=== PATIENT | male | born 1970 | race Caucasian/White ===

== ENCOUNTER 2017-02-03 13:24 | Inpatient (IN) | payer SELFPAY ==
[2017-02-03] VITALS (8 sets, daily range): BP systolic 82–112; BP diastolic 51–70
[~2017-02-03] VITALS: Ht 172.7 cm; Wt 77.6 kg
[~2017-02-03 13:24] MED LIST: PNEUMOC CONJ VACC 23-VALENT 0.5 ML VIAL. VAX IM ONE
--- NOTE | 2017-02-03 13:59 | EKG ---
[facility] [address] [place] [address] Test Date: 2017-02-03 Test Time: 13:41:56 Pat Name: ANN MARIE WHIPPLE Department: Room: Gender: M Real Estate Representative: : 1970 Requested By: Dion ERIC Order Number: [id number] Reading MD: Jesus Manuel Dumont Measurements Intervals [place] Rate: 99 P: 49 VA: 142 QRS: 25 QRSD: 80 T: 39 QT: 376 QTc: 488 Interpretive Statements SINUS RHYTHM LOW LIMB LEAD VOLTAGE PROLONGED QT BORDERLINE ECG Electronically Signed On 02-13-2017 9:11:03 VIDEO PRODUCTION COORDINATOR by Jesus Manuel Dumont
[2017-02-03] MEDS ORDERED: IV NORMAL SALINE 1000ML BAG 1,000 ML IV ONE ×2 (14:00→17:15)
[2017-02-03 14:03] LABS: BASO # 0.1 x10^3/uL (0.0-0.2); BASO % 1 % (0-3); EOS % 0 % (0-3); HEMATOCRIT 30.1 % (39.0-53.0); HEMOGLOBIN 9.8 g/dL (13.0-17.5); LYMPH # 2.2 x10^3/uL (1.0-4.8); LYMPH % 11 % (24-48); MEAN CORPUSCULAR HEMOGLOBIN 35 pg (25-35); MEAN CORPUSCULAR HGB CONC 33 g/dL (31-37); MEAN CORPUSCULAR VOLUME 108 fL (79-100); MONO % 7 % (0-9); NEUT % 82 % (31-73); PLATELET COUNT 249 x10^3/uL (140-400); RED BLOOD COUNT 2.78 x10^6/uL (4.30-5.70); RED CELL DISTRIBUTION WIDTH 19.8 % (11.5-14.5); WHITE BLOOD COUNT 20.9 x10^3/uL (4.0-11.0)
[2017-02-03 14:13] LABS: INR 2.7 (0.8-1.1); PROTHROMBIN TIME PATIENT 27.1 SEC (11.7-14.0)
[2017-02-03] MEDS ORDERED: fentaNYL PF VIAL 100 MCG/2 ML VIAL ONE (14:27)
[2017-02-03] MEDS ORDERED: fentaNYL PF VIAL 100 MCG/2 ML VIAL IV ONE (14:30)
[2017-02-03 14:32] LABS: ALBUMIN 1.7 g/dL (3.4-5.0); ALBUMIN/GLOBULIN RATIO 0.4 (1.0-1.7); CREATININE 4.5 mg/dL (0.7-1.3); GFR 14.1; MAGNESIUM 1.1 mg/dL (1.8-2.4); TOTAL BILIRUBIN 20.7 mg/dL (0.2-1.0); TOTAL PROTEIN 5.8 g/dL (6.4-8.2)
--- NOTE | 2017-02-03 14:42 | PHYS DOC ---
Past Medical History Past Medical History: Alcoholism Past Surgical History: Tonsillectomy Additional Information: 1 ppd Alcohol Use: Heavy Additional Information: 1/2 pint vodka daily Drug Use: None Adult General Chief Complaint Chief Complaint: WEAKNESS/GENERALIZED HPI HPI Patient is a 47 year old male presents with complaints of yellowing of the skin , right upper quadrant pain, nausea, weakness. Patient states states his skin started change in color 2 days ago. Patient is a habitual drinker he states now he is down to half a pint per day but used to drink have a 1/2 gallon of liquor a day. Patient also has generalized weakness, bloody stools Review of Systems Review of Systems Constitutional: Denies fever or chills [] Eyes: Denies change in visual acuity, redness, or eye pain [] HENT: Denies nasal congestion or sore throat [] Respiratory: Denies cough or shortness of breath [] Cardiovascular: No chest pain GI: Right upper quadrant pain, nausea. Bloody stools : Denies dysuria or hematuria [] Musculoskeletal: Denies back pain or joint pain [] Integument: Yellow skin Neurologic: Denies headache, focal weakness or sensory changes. Generalized weakness All other systems were reviewed and found to be within normal limits, except as documented in this note. Current Medications Current Medications Current Medications Medications (Trade) Dose Ordered Sig/Steve Start Time Stop Time Status Last Admin Dose Admin Fentanyl Citrate (Fentanyl 2ml Vial) 100 mcg STK-MED ONCE 02/03/17 14:27 02/03/17 14:28 DC Sodium Chloride 1,000 ml @ 1,000 mls/hr 1X ONCE 02/03/17 14:00 02/03/17 14:59 DC 02/03/17 14:00 1,000 MLS/HR Allergies Allergies Allergies Coded Allergies Type Severity Reaction Last Updated Verified No Known Drug Allergies 01/18/17 No Physical Exam Physical Exam Constitutional: Well developed, well nourished, moderate distress, non-toxic appearance. No evidence of alcohol withdrawal HENT: Normocephalic, atraumatic, bilateral external ears normal, oropharynx right, no oral exudates, nose normal. [] Eyes: PERRLA, EOMI, icteric, no discharge. [] Neck: Normal range of motion, no tenderness, supple, no stridor. No meningeal signs, no LAD Cardiovascular:Heart rate regular rhythm, no murmur, equal pulses, normal perfusion Lungs & Thorax: Decreased breathe sounds at the bases. Abdomen: Bowel decrease, mild distention, tenderness right upper quadrant, hepatomegaly, no pulsatile masses. [] Skin: Warm, dry, no erythema, jaundiced. No diaphoresis Back: Normal range of motion[] Extremities: No tenderness, no DVT, ROM intact, no edema. No tremors Neurologic: Alert and oriented X 3, normal motor function, no focal deficits noted. [] Psychologic: Affect normal, judgement normal, mood normal. No hallucinations, delusions Current Patient Data Vital Signs Vital Signs Date Time Temp Pulse Resp B/P (MAP) Pulse Ox O2 Delivery O2 Flow Rate FiO2 02/03/17 14:37 16 98 Room Air 02/03/17 14:26 93 02/03/17 13:32 98.4 74/48 (57) 98.4 Lab Values Laboratory Tests Test 02/03/17 13:45 White Blood Count 20.9 x10^3/uL (4.0-11.0) H Red Blood Count 2.78 x10^6/uL (4.30-5.70) L Hemoglobin 9.8 g/dL (13.0-17.5) L Hematocrit 30.1 % (39.0-53.0) L Mean Corpuscular Volume 108 fL (79-100) H Mean Corpuscular Hemoglobin 35 pg (25-35) Mean Corpuscular Hemoglobin Concent 33 g/dL (31-37) Red Cell Distribution Width 19.8 % (11.5-14.5) H Platelet Count 249 x10^3/uL (140-400) Neutrophils (%) (Auto) 82 % (31-73) H Lymphocytes (%) (Auto) 11 % (24-48) L Monocytes (%) (Auto) 7 % (0-9) Eosinophils (%) (Auto) 0 % (0-3) Basophils (%) (Auto) 1 % (0-3) Neutrophils # (Auto) 17.1 x10^3uL (1.8-7.7) H Lymphocytes # (Auto) 2.2 x10^3/uL (1.0-4.8) Monocytes # (Auto) 1.5 x10^3/uL (0.0-1.1) H Eosinophils # (Auto) 0.0 x10^3/uL (0.0-0.7) Basophils # (Auto) 0.1 x10^3/uL (0.0-0.2) Segmented Neutrophils % 80 % (35-66) H Band Neutrophils % 8 % (0-9) Lymphocytes % 7 % (24-48) L Monocytes % 5 % (0-10) Toxic Granulation Slight Toxic Vacuolation Mod Platelet Estimate Adequate (ADEQUATE) Polychromasia Slight Anisocytosis Slight Macrocytosis Mod Prothrombin Time 27.1 SEC (11.7-14.0) H Prothrombin Time INR 2.7 (0.8-1.1) H Sodium Level 119 mmol/L (136-145) *L Potassium Level 4.0 mmol/L (3.5-5.1) Chloride Level 76 mmol/L (98-107) L Carbon Dioxide Level 22 mmol/L (21-32) Anion Gap 21 (6-14) H Blood Urea Nitrogen 36 mg/dL (8-26) H Creatinine 4.5 mg/dL (0.7-1.3) H Estimated GFR (Cockcroft-Gault) 14.1 BUN/Creatinine Ratio 8 (6-20) Glucose Level 73 mg/dL (70-99) Lactic Acid Level 7.2 mmol/L (0.4-2.0) *H Calcium Level 7.0 mg/dL (8.5-10.1) L Magnesium Level 1.1 mg/dL (1.8-2.4) L Total Bilirubin 20.7 mg/dL (0.2-1.0) H Aspartate Amino Transferase (AST) 289 U/L (15-37) H Alanine Aminotransferase (ALT) 42 U/L (16-63) Alkaline Phosphatase 266 U/L (46-116) H Ammonia 36 mcmol/L (11-34) H Total Protein 5.8 g/dL (6.4-8.2) L Albumin 1.7 g/dL (3.4-5.0) L Albumin/Globulin Ratio 0.4 (1.0-1.7) L Lipase 50 U/L (73-393) L Laboratory Tests 02/03/17 13:45 Laboratory Tests 02/03/17 13:45 EKG EKG 1342 sinus rhythm, 99, no STEMI[] Radiology/Procedures Radiology/Procedures Admitting MD aware of pending US[] Course & Med Decision Making Course & Med Decision Making Pertinent Labs and Imaging studies reviewed. (See chart for details) Admitting Nancy has requested med telemetry for this patient, I suggested ICU but she wants med telemetry at this time 1541 pt still hypotensive but mentating well. Will change admission to ICU bed and start levophed and give antibiotics. The elevated lactic acid may be only due to the liver failure but with the elevated WBC and hypotension we will treat accordingly Critical care time was 30 minutes exclusive of procedures or teaching. discussion with pt and family, nursing, admitting team. Pressors started as well as antibiotics. Patient has multiple issues complicating his condition. One on one time needed to coordinate care, initiate and monitor interventions and monitor for possible deterioration 1632 pt in nad, still hypotensive, will increase levophed to 10/min [] Dragon Disclaimer Dragon Disclaimer This electronic medical record was generated, in whole or in part, using a voice recognition dictation system. Departure Departure Impression: Primary Impression: Liver failure Additional Impressions: Electrolyte abnormality Dehydration Alcohol abuse Leukocytosis Anemia Increased ammonia level Hypotension Disposition: 09 ADMITTED INPATIENT Admitting Physician: Other Condition: GUARDED Referrals: NO PCP (PCP) Scripts No Active Prescriptions or Reported Meds Problem Qualifiers Dion ERIC MD Feb 03, 2017 14:42
[2017-02-03 14:48] LABS: PLT ESTIMATE ADEQUATE (ADEQUATE)
[2017-02-03 14:49] LABS: ANISOCYTOSIS SLIGHT; POLYCHROMASIA SLIGHT; TOXIC GRANULATION SLIGHT; TOXIC VACUOLATION MOD
[2017-02-03] MEDS ORDERED: IV NORMAL SALINE 500ML BAG 500 ML IV ONE ×2 (15:00→22:30)
[2017-02-03] MEDS ORDERED: PIPERACILLIN/TAZO IV Push 3.375 GM VIAL. IVP ONE (15:45)
[2017-02-03] MEDS ORDERED: PIPERACILLIN/TAZOBACTAM 3.375 GM in IV DEXTROSE 5% 50 ML IV ONE (15:45)
[2017-02-03] MEDS ORDERED: NOREPINEPHRIN PREMIX 250 ML IV ONE (15:45)
--- NOTE | 2017-02-03 16:03 | RAD ---
Portable AP upright view CXR: Clinical indications: Decreased breath sounds. Comparison: None available. Findings: Decreased inspiration is seen. No acute lung infiltrate or pleural effusion or pulmonary edema or lung mass or pneumothorax is seen. The heart size, pulmonary vasculature, mediastinum and both nohemi are unremarkable. Impression: Decreased inspiration is seen. No acute radiographic abnormality is seen.
--- NOTE | 2017-02-03 16:13 | RAD ---
Right upper quadrant abdominal ultrasound, 02/03/2017: History: Right upper quadrant pain, liver failure, ascites The gallbladder is somewhat poorly visualized. There is edematous thickening of its arrington. It contains echogenic material without posterior acoustic shadowing. The appearance suggests biliary sludge. Small calculi cannot be entirely excluded. The liver demonstrates generalized increased echogenicity. This is most commonly due to fatty change. No hepatic mass or bile duct dilatation is seen. The pancreas and central retroperitoneum were obscured obscured by overlying bowel. Limited views of the right kidney show no abnormality. A small volume of ascites is present. IMPRESSION: 1. Increased hepatic echogenicity compatible with hepatic steatosis. 2. The gallbladder is filled with echogenic material, probably sludge. 3. Diffuse gallbladder wall thickening which can be due to a variety of causes including liver disease, hypoproteinemia or cholecystitis. 4. Small volume of ascites.
[2017-02-03] MEDS ORDERED: INFLUENZA VAX SCREEN BY RX. MC ONE (19:45)
[2017-02-03] MEDS ORDERED: PNEUMOCOCCAL VAX SCREEN BY RX. MC ONE (19:45)
[2017-02-03] MEDS ORDERED: MULTIVIT INFUSN,ADULT 4,VIT K 10 ML, THIAMINE 100 MG, FOLIC ACID 1 MG in IV NORMAL SALI... IV ONE (20:00)
[2017-02-03] MEDS ORDERED: MAGNESIUM SULFATE 2GM 50 ML IV ONE (20:00)
[2017-02-03] MEDS: MORPHINE SULFATE 2 MG/ML DISP.SYRIN. IV PRN ×2 (20:44→20:51)
[2017-02-03] MEDS ORDERED: FLU VACC QS2017-18 (36MOS+)/PF 0.5 ML SYRINGE. VAX IM ONE (21:00)
[2017-02-03 21:10] LABS: CALCIUM 6.4 mg/dL (8.5-10.1); CREATININE 4.5 mg/dL (0.7-1.3); GFR 14.1; POTASSIUM 4.1 mmol/L (3.5-5.1)
--- NOTE | 2017-02-03 21:13 | HP ---
ADMIT DATE: 02/03/2017 CHIEF COMPLAINT: Jaundice. HISTORY OF PRESENT ILLNESS: The patient is a 47-year-old gentleman with a significant alcoholism, who presented to the Emergency Room with a 3-4 day history of increasing jaundice. His girlfriend finally brought him into the Emergency Room. On elucidating history from him, it becomes clear that since his most recent discharge for dehydration on 01/18/2017, he has been feeling weak, nauseated, although no vomiting, occasional retching. He had significant anorexia and cut down on his typical half a gallon of vodka a day to about half of that. Smoking also has significantly decreased from his usual greater than 1 pack to about half a pack now. He had developed diarrhea about 4 days ago: Multiple times up to 8-9 times a day without any pain and no blood noted for the past 4 days. He denies any fevers, does have generalized abdominal as well as back pain, which is new to him. He had not noticed decreased urine output but endorsed generalized weakness and fatigue. In the Emergency Room, he was found with multiple laboratory abnormalities including significant leukocytosis with left shift, hyponatremia at 119 and creatinine at 4.5, which had been 0.9 at his previous admission as well as lactic acid of 7.2 and bilirubin of 20.7 and he was admitted to the ICU room for further management. PAST MEDICAL HISTORY: None. 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 Massive alcohol use of half a gallon of vodka daily as well as tobacco use above 1 pack a day. No other drugs. ALLERGIES: No known drug allergies. HOME MEDICATIONS: None. REVIEW OF SYSTEMS: Positive as per HPI. Denies any headaches or vision problems. Denies any chest pain or shortness of breath. Denies any muscle aches in his extremities. Girlfriend noted mild confusion. Positive for GI symptoms as per HPI. Back pain, which is new. PHYSICAL EXAMINATION: VITAL SIGNS: From today show a blood pressure of 74/48 and currently 109/54, on Levophed; heart rate in the 80s and 90s; respiratory rate 17-20 and he is afebrile. GENERAL: This is a 47-year-old slim gentleman. Awake and alert, in no acute distress. HEENT: Sclerae severely icteric. NECK: Supple. LUNGS: Clear. HEART: Tachycardic with gallop. ABDOMEN: Tenderness to palpation in the right side where liver is palpable past the umbilicus and also splenomegaly about 5 cm below costal margin. EXTREMITIES: Show trace edema. NEUROLOGICAL: He appears grossly intact, although with slight perseveration in thought. He is able to move all extremities. LABORATORY DATA: CBC with a WBC of 20.9. Differential with 80% segmented and 8% band neutrophils. Hemoglobin at 9.8, MCV at 108 and platelets at 249. Chemistries with a BUN and creatinine of 36 and 4.5, sodium 119, potassium 4.0 and magnesium 1.1. Total bilirubin 20.7, AST 289, ALT of 42 and alkaline phosphatase at 266. Initial troponin is negative. Albumin at 1.8. Ammonia 36. Lactate at 7.2 and repeat 4 hours later 4.9. Lipase is negative. Tox screen not obtained. Alcohol level was negative. IMAGING DATA: Ultrasound of the right upper quadrant showing increased hepatic echogenicity compatible with hepatic steatosis. Gallbladder is filled probably sludge, diffuse gallbladder wall thickening, which can be due to a variety of causes, small volume ascites. ASSESSMENT AND PLAN: The patient is a 47-year-old gentleman with severe hepatorenal failure for unclear etiology. Part of this may be dehydration due to poor p.o. intake, combined with diarrhea. We will have to evaluate the latter with stool studies. He did have hospital contacted 2 weeks ago per RN, bowel movement here appeared melanotic, smelling like a gastrointestinal bleed. We will obtain occult blood stools to confirm. Gastrointestinal consult will be obtained for this as well as liver failure. Renal failure appears fairly acute. Two weeks ago, his creatinine had been normal. We will consult renal for potential dialysis. Hyponatremia that is critical at 119. He has received multiple liters of normal saline. We will repeat studies to follow up. May need further repletion. Etiology of hypotension is somewhat unclear, however, with leukocytosis and left shift, infection is high on the list. No focus has been identified as of yet. Consider gastrointestinal given a diarrheal symptoms and possible melena. Blood cultures have been obtained in the Emergency Room. We will start empirically on Zosyn and Flagyl. Lastly, code status was discussed with him and his girlfriend. He wishes "everything" to be done including cardiopulmonary resuscitation and intubation if necessary. He qualifies as that he would not want to be kept alive if there was no possibility of recovery. He designates verbally his girlfriend as the decision maker should he be incapacitated. He wishes to discuss advanced directive with Edger Saw Operator. RENE MARQUEZ MD DR: MARSHA/nts JOB#: [id number] / [id number]
[2017-02-03 21:18] LABS: ALBUMIN 1.5 g/dL (3.4-5.0); ALBUMIN/GLOBULIN RATIO 0.4 (1.0-1.7); TOTAL BILIRUBIN 18.2 mg/dL (0.2-1.0); TOTAL PROTEIN 4.9 g/dL (6.4-8.2)
[2017-02-03] MEDS: IV NORMAL SALINE 1000ML BAG 1,000 ML IV SCH (22:07)
[2017-02-04] VITALS (25 sets, daily range): BP systolic 72–99; BP diastolic 45–70
[2017-02-04] MEDS ORDERED: PIPERACILLIN/TAZOBACTAM 2.25 GM in IV DEXTROSE 5% 50 ML IV SCH ×2
[2017-02-04] MEDS: NOREPINEPHRIN PREMIX 250 ML IV PRN ×5 (00:18→22:24)
[2017-02-04] MEDS: PIPERACILLIN/TAZO IV Push 2.25 GM VIAL. IVP SCH ×4 (00:45→22:12)
[2017-02-04] MEDS ORDERED: IV NORMAL SALINE 500ML BAG 500 ML IV ONE (03:00)
[2017-02-04 06:08] LABS: BASO # 0.1 x10^3/uL (0.0-0.2); BASO % 1 % (0-3); EOS % 0 % (0-3); HEMATOCRIT 25.1 % (39.0-53.0); HEMOGLOBIN 8.1 g/dL (13.0-17.5); LYMPH # 3.3 x10^3/uL (1.0-4.8); LYMPH % 14 % (24-48); MEAN CORPUSCULAR HEMOGLOBIN 36 pg (25-35); MEAN CORPUSCULAR HGB CONC 33 g/dL (31-37); MEAN CORPUSCULAR VOLUME 110 fL (79-100); MONO % 7 % (0-9); NEUT % 78 % (31-73); PLATELET COUNT 259 x10^3/uL (140-400); RED BLOOD COUNT 2.27 x10^6/uL (4.30-5.70); RED CELL DISTRIBUTION WIDTH 19.4 % (11.5-14.5); WHITE BLOOD COUNT 23.1 x10^3/uL (4.0-11.0)
[2017-02-04 06:45] LABS: ALBUMIN 1.4 g/dL (3.4-5.0); ALBUMIN/GLOBULIN RATIO 0.4 (1.0-1.7); CREATININE 4.6 mg/dL (0.7-1.3); GFR 13.7; TOTAL BILIRUBIN 18.8 mg/dL (0.2-1.0)
[2017-02-04 07:00] LABS: CALCIUM 6.1 mg/dL (8.5-10.1)
[2017-02-04] MEDS: MULTIVIT INFUSN,ADULT 4,VIT K 10 ML, THIAMINE 100 MG, FOLIC ACID 1 MG in IV NORMAL SALI... IV SCH (09:14)
[2017-02-04] MEDS: IV NORMAL SALINE 1000ML BAG 1,000 ML IV SCH ×3 (09:14→23:37)
[2017-02-04] MEDS ORDERED: VASOPRESSIN 40 UNIT in IV DEXTROSE 5% 100 ML IV PRN (09:30)
--- NOTE | 2017-02-04 09:40 | PDOC ---
PROGRESS NOTES Chief Complaint Chief Complaint Jaundice ASSESSMENT AND PLAN: 1. Hypotensive shock: barely responsive to IVF boluses and levophed. cont IVF , vasopressors as needed. ? septic shock with leukocytosis, lactic acidosis. awaiting cult., on empiric Abx 2. Renal failure: essentially unchanged labs with high creat, electrolyte imbalances. D/w Dr Hinton: CVVT planned 3. Hepatic failure: unchanged labs, elevated ammonia. acute on chronic picture. 4. ?GIB: no further melena noted, but BUN rising. GI consult pending. 5. EtOH abuse: neg EtOH level at admit, no signs of W/D. [facility] protocol Vitals Vitals Vital Signs Date Time Temp Pulse Resp B/P (MAP) Pulse Ox O2 Delivery O2 Flow Rate FiO2 02/04/17 09:18 96 21 84/48 (60) 96 Room Air 02/04/17 04:00 98.4 98.4 Physical Exam General: Alert, Oriented X3, Cooperative, No acute distress Heart: Regular rate Lungs: Clear Abdomen: Normal bowel sounds Extremities: No clubbing, Other (tace edema) Skin: Other (massive jaundice) Labs LABS Laboratory Tests Test 02/03/17 13:45 02/03/17 17:30 02/03/17 20:35 02/04/17 05:38 White Blood Count 20.9 x10^3/uL (4.0-11.0) 23.1 x10^3/uL (4.0-11.0) Red Blood Count 2.78 x10^6/uL (4.30-5.70) 2.27 x10^6/uL (4.30-5.70) Hemoglobin 9.8 g/dL (13.0-17.5) 8.1 g/dL (13.0-17.5) Hematocrit 30.1 % (39.0-53.0) 25.1 % (39.0-53.0) Mean Corpuscular Volume 108 fL (79-100) 110 fL (79-100) Mean Corpuscular Hemoglobin 35 pg (25-35) 36 pg (25-35) Mean Corpuscular Hemoglobin Concent 33 g/dL (31-37) 33 g/dL (31-37) Red Cell Distribution Width 19.8 % (11.5-14.5) 19.4 % (11.5-14.5) Platelet Count 249 x10^3/uL (140-400) 259 x10^3/uL (140-400) Neutrophils (%) (Auto) 82 % (31-73) 78 % (31-73) Lymphocytes (%) (Auto) 11 % (24-48) 14 % (24-48) Monocytes (%) (Auto) 7 % (0-9) 7 % (0-9) Eosinophils (%) (Auto) 0 % (0-3) 0 % (0-3) Basophils (%) (Auto) 1 % (0-3) 1 % (0-3) Neutrophils # (Auto) 17.1 x10^3uL (1.8-7.7) 18.0 x10^3uL (1.8-7.7) Lymphocytes # (Auto) 2.2 x10^3/uL (1.0-4.8) 3.3 x10^3/uL (1.0-4.8) Monocytes # (Auto) 1.5 x10^3/uL (0.0-1.1) 1.6 x10^3/uL (0.0-1.1) Eosinophils # (Auto) 0.0 x10^3/uL (0.0-0.7) 0.0 x10^3/uL (0.0-0.7) Basophils # (Auto) 0.1 x10^3/uL (0.0-0.2) 0.1 x10^3/uL (0.0-0.2) Segmented Neutrophils % 80 % (35-66) Band Neutrophils % 8 % (0-9) Lymphocytes % 7 % (24-48) Monocytes % 5 % (0-10) Toxic Granulation Slight Toxic Vacuolation Mod Platelet Estimate Adequate (ADEQUATE) Polychromasia Slight Anisocytosis Slight Macrocytosis Mod Prothrombin Time 27.1 SEC (11.7-14.0) Prothromb Time International Ratio 2.7 (0.8-1.1) Sodium Level 119 mmol/L (136-145) 125 mmol/L (136-145) 124 mmol/L (136-145) Potassium Level 4.0 mmol/L (3.5-5.1) 4.1 mmol/L (3.5-5.1) 4.0 mmol/L (3.5-5.1) Chloride Level 76 mmol/L (98-107) 82 mmol/L (98-107) 87 mmol/L (98-107) Carbon Dioxide Level 22 mmol/L (21-32) 20 mmol/L (21-32) 17 mmol/L (21-32) Anion Gap 21 (6-14) 23 (6-14) 20 (6-14) Blood Urea Nitrogen 36 mg/dL (8-26) 37 mg/dL (8-26) 44 mg/dL (8-26) Creatinine 4.5 mg/dL (0.7-1.3) 4.5 mg/dL (0.7-1.3) 4.6 mg/dL (0.7-1.3) Estimated GFR (Cockcroft-Gault) 14.1 14.1 13.7 BUN/Creatinine Ratio 8 (6-20) 8 (6-20) 10 (6-20) Glucose Level 73 mg/dL (70-99) 74 mg/dL (70-99) 84 mg/dL (70-99) Lactic Acid Level 7.2 mmol/L (0.4-2.0) 4.9 mmol/L (0.4-2.0) Calcium Level 7.0 mg/dL (8.5-10.1) 6.4 mg/dL (8.5-10.1) 6.1 mg/dL (8.5-10.1) Magnesium Level 1.1 mg/dL (1.8-2.4) 1.0 mg/dL (1.8-2.4) 1.7 mg/dL (1.8-2.4) Total Bilirubin 20.7 mg/dL (0.2-1.0) 18.2 mg/dL (0.2-1.0) 18.8 mg/dL (0.2-1.0) Aspartate Amino Transf (AST/SGOT) 289 U/L (15-37) 263 U/L (15-37) 256 U/L (15-37) Alanine Aminotransferase (ALT/SGPT) 42 U/L (16-63) 40 U/L (16-63) 39 U/L (16-63) Alkaline Phosphatase 266 U/L (46-116) 228 U/L (46-116) 213 U/L (46-116) Ammonia 36 mcmol/L (11-34) Total Protein 5.8 g/dL (6.4-8.2) 4.9 g/dL (6.4-8.2) 5.0 g/dL (6.4-8.2) Albumin 1.7 g/dL (3.4-5.0) 1.5 g/dL (3.4-5.0) 1.4 g/dL (3.4-5.0) Albumin/Globulin Ratio 0.4 (1.0-1.7) 0.4 (1.0-1.7) 0.4 (1.0-1.7) Lipase 50 U/L (73-393) Comment Review of Relevant I have reviewed the following items neetu (where applicable) has been applied. Labs Laboratory Tests Test 02/03/17 13:45 02/03/17 17:30 02/03/17 20:35 02/04/17 05:38 White Blood Count 20.9 x10^3/uL (4.0-11.0) 23.1 x10^3/uL (4.0-11.0) Red Blood Count 2.78 x10^6/uL (4.30-5.70) 2.27 x10^6/uL (4.30-5.70) Hemoglobin 9.8 g/dL (13.0-17.5) 8.1 g/dL (13.0-17.5) Hematocrit 30.1 % (39.0-53.0) 25.1 % (39.0-53.0) Mean Corpuscular Volume 108 fL (79-100) 110 fL (79-100) Mean Corpuscular Hemoglobin 35 pg (25-35) 36 pg (25-35) Mean Corpuscular Hemoglobin Concent 33 g/dL (31-37) 33 g/dL (31-37) Red Cell Distribution Width 19.8 % (11.5-14.5) 19.4 % (11.5-14.5) Platelet Count 249 x10^3/uL (140-400) 259 x10^3/uL (140-400) Neutrophils (%) (Auto) 82 % (31-73) 78 % (31-73) Lymphocytes (%) (Auto) 11 % (24-48) 14 % (24-48) Monocytes (%) (Auto) 7 % (0-9) 7 % (0-9) Eosinophils (%) (Auto) 0 % (0-3) 0 % (0-3) Basophils (%) (Auto) 1 % (0-3) 1 % (0-3) Neutrophils # (Auto) 17.1 x10^3uL (1.8-7.7) 18.0 x10^3uL (1.8-7.7) Lymphocytes # (Auto) 2.2 x10^3/uL (1.0-4.8) 3.3 x10^3/uL (1.0-4.8) Monocytes # (Auto) 1.5 x10^3/uL (0.0-1.1) 1.6 x10^3/uL (0.0-1.1) Eosinophils # (Auto) 0.0 x10^3/uL (0.0-0.7) 0.0 x10^3/uL (0.0-0.7) Basophils # (Auto) 0.1 x10^3/uL (0.0-0.2) 0.1 x10^3/uL (0.0-0.2) Segmented Neutrophils % 80 % (35-66) Band Neutrophils % 8 % (0-9) Lymphocytes % 7 % (24-48) Monocytes % 5 % (0-10) Toxic Granulation Slight Toxic Vacuolation Mod Platelet Estimate Adequate (ADEQUATE) Polychromasia Slight Anisocytosis Slight Macrocytosis Mod Prothrombin Time 27.1 SEC (11.7-14.0) Prothromb Time International Ratio 2.7 (0.8-1.1) Sodium Level 119 mmol/L (136-145) 125 mmol/L (136-145) 124 mmol/L (136-145) Potassium Level 4.0 mmol/L (3.5-5.1) 4.1 mmol/L (3.5-5.1) 4.0 mmol/L (3.5-5.1) Chloride Level 76 mmol/L (98-107) 82 mmol/L (98-107) 87 mmol/L (98-107) Carbon Dioxide Level 22 mmol/L (21-32) 20 mmol/L (21-32) 17 mmol/L (21-32) Anion Gap 21 (6-14) 23 (6-14) 20 (6-14) Blood Urea Nitrogen 36 mg/dL (8-26) 37 mg/dL (8-26) 44 mg/dL (8-26) Creatinine 4.5 mg/dL (0.7-1.3) 4.5 mg/dL (0.7-1.3) 4.6 mg/dL (0.7-1.3) Estimated GFR (Cockcroft-Gault) 14.1 14.1 13.7 BUN/Creatinine Ratio 8 (6-20) 8 (6-20) 10 (6-20) Glucose Level 73 mg/dL (70-99) 74 mg/dL (70-99) 84 mg/dL (70-99) Lactic Acid Level 7.2 mmol/L (0.4-2.0) 4.9 mmol/L (0.4-2.0) Calcium Level 7.0 mg/dL (8.5-10.1) 6.4 mg/dL (8.5-10.1) 6.1 mg/dL (8.5-10.1) Magnesium Level 1.1 mg/dL (1.8-2.4) 1.0 mg/dL (1.8-2.4) 1.7 mg/dL (1.8-2.4) Total Bilirubin 20.7 mg/dL (0.2-1.0) 18.2 mg/dL (0.2-1.0) 18.8 mg/dL (0.2-1.0) Aspartate Amino Transf (AST/SGOT) 289 U/L (15-37) 263 U/L (15-37) 256 U/L (15-37) Alanine Aminotransferase (ALT/SGPT) 42 U/L (16-63) 40 U/L (16-63) 39 U/L (16-63) Alkaline Phosphatase 266 U/L (46-116) 228 U/L (46-116) 213 U/L (46-116) Ammonia 36 mcmol/L (11-34) Total Protein 5.8 g/dL (6.4-8.2) 4.9 g/dL (6.4-8.2) 5.0 g/dL (6.4-8.2) Albumin 1.7 g/dL (3.4-5.0) 1.5 g/dL (3.4-5.0) 1.4 g/dL (3.4-5.0) Albumin/Globulin Ratio 0.4 (1.0-1.7) 0.4 (1.0-1.7) 0.4 (1.0-1.7) Lipase 50 U/L (73-393) Laboratory Tests Test 02/03/17 13:45 02/03/17 17:30 02/03/17 20:35 02/04/17 05:38 White Blood Count 20.9 x10^3/uL (4.0-11.0) 23.1 x10^3/uL (4.0-11.0) Red Blood Count 2.78 x10^6/uL (4.30-5.70) 2.27 x10^6/uL (4.30-5.70) Hemoglobin 9.8 g/dL (13.0-17.5) 8.1 g/dL (13.0-17.5) Hematocrit 30.1 % (39.0-53.0) 25.1 % (39.0-53.0) Mean Corpuscular Volume 108 fL (79-100) 110 fL (79-100) Mean Corpuscular Hemoglobin 35 pg (25-35) 36 pg (25-35) Mean Corpuscular Hemoglobin Concent 33 g/dL (31-37) 33 g/dL (31-37) Red Cell Distribution Width 19.8 % (11.5-14.5) 19.4 % (11.5-14.5) Platelet Count 249 x10^3/uL (140-400) 259 x10^3/uL (140-400) Neutrophils (%) (Auto) 82 % (31-73) 78 % (31-73) Lymphocytes (%) (Auto) 11 % (24-48) 14 % (24-48) Monocytes (%) (Auto) 7 % (0-9) 7 % (0-9) Eosinophils (%) (Auto) 0 % (0-3) 0 % (0-3) Basophils (%) (Auto) 1 % (0-3) 1 % (0-3) Neutrophils # (Auto) 17.1 x10^3uL (1.8-7.7) 18.0 x10^3uL (1.8-7.7) Lymphocytes # (Auto) 2.2 x10^3/uL (1.0-4.8) 3.3 x10^3/uL (1.0-4.8) Monocytes # (Auto) 1.5 x10^3/uL (0.0-1.1) 1.6 x10^3/uL (0.0-1.1) Eosinophils # (Auto) 0.0 x10^3/uL (0.0-0.7) 0.0 x10^3/uL (0.0-0.7) Basophils # (Auto) 0.1 x10^3/uL (0.0-0.2) 0.1 x10^3/uL (0.0-0.2) Segmented Neutrophils % 80 % (35-66) Band Neutrophils % 8 % (0-9) Lymphocytes % 7 % (24-48) Monocytes % 5 % (0-10) Toxic Granulation Slight Toxic Vacuolation Mod Platelet Estimate Adequate (ADEQUATE) Polychromasia Slight Anisocytosis Slight Macrocytosis Mod Prothrombin Time 27.1 SEC (11.7-14.0) Prothromb Time International Ratio 2.7 (0.8-1.1) Sodium Level 119 mmol/L (136-145) 125 mmol/L (136-145) 124 mmol/L (136-145) Potassium Level 4.0 mmol/L (3.5-5.1) 4.1 mmol/L (3.5-5.1) 4.0 mmol/L (3.5-5.1) Chloride Level 76 mmol/L (98-107) 82 mmol/L (98-107) 87 mmol/L (98-107) Carbon Dioxide Level 22 mmol/L (21-32) 20 mmol/L (21-32) 17 mmol/L (21-32) Anion Gap 21 (6-14) 23 (6-14) 20 (6-14) Blood Urea Nitrogen 36 mg/dL (8-26) 37 mg/dL (8-26) 44 mg/dL (8-26) Creatinine 4.5 mg/dL (0.7-1.3) 4.5 mg/dL (0.7-1.3) 4.6 mg/dL (0.7-1.3) Estimated GFR (Cockcroft-Gault) 14.1 14.1 13.7 BUN/Creatinine Ratio 8 (6-20) 8 (6-20) 10 (6-20) Glucose Level 73 mg/dL (70-99) 74 mg/dL (70-99) 84 mg/dL (70-99) Lactic Acid Level 7.2 mmol/L (0.4-2.0) 4.9 mmol/L (0.4-2.0) Calcium Level 7.0 mg/dL (8.5-10.1) 6.4 mg/dL (8.5-10.1) 6.1 mg/dL (8.5-10.1) Magnesium Level 1.1 mg/dL (1.8-2.4) 1.0 mg/dL (1.8-2.4) 1.7 mg/dL (1.8-2.4) Total Bilirubin 20.7 mg/dL (0.2-1.0) 18.2 mg/dL (0.2-1.0) 18.8 mg/dL (0.2-1.0) Aspartate Amino Transf (AST/SGOT) 289 U/L (15-37) 263 U/L (15-37) 256 U/L (15-37) Alanine Aminotransferase (ALT/SGPT) 42 U/L (16-63) 40 U/L (16-63) 39 U/L (16-63) Alkaline Phosphatase 266 U/L (46-116) 228 U/L (46-116) 213 U/L (46-116) Ammonia 36 mcmol/L (11-34) Total Protein 5.8 g/dL (6.4-8.2) 4.9 g/dL (6.4-8.2) 5.0 g/dL (6.4-8.2) Albumin 1.7 g/dL (3.4-5.0) 1.5 g/dL (3.4-5.0) 1.4 g/dL (3.4-5.0) Albumin/Globulin Ratio 0.4 (1.0-1.7) 0.4 (1.0-1.7) 0.4 (1.0-1.7) Lipase 50 U/L (73-393) Medications Current Medications Sodium Chloride 1,000 ml @ 1,000 mls/hr 1X ONCE IV Last administered on 02/03 14:00; Start 02/03/17 at 14:00; Stop 02/03/17 at 14:59; Status DC Fentanyl Citrate (Fentanyl 2ml Vial) 50 mcg 1X ONCE IV Last administered on 14:37; Start 02/03/17 at 14:30; Stop 02/03/17 at 14:31; Status DC Fentanyl Citrate (Fentanyl 2ml Vial) 100 mcg STK-MED ONCE .ROUTE ; Start at 14:27; Stop 02/03/17 at 14:28; Status DC Sodium Chloride 500 ml @ 500 mls/hr 1X ONCE IV Last administered on 14:59; Start 02/03/17 at 15:00; Stop 02/03/17 at 15:59; Status DC Norepinephrine Bitartrate 250 ml @ 0 mls/hr 1X ONCE IV Last administered on 16:02; Start 02/03/17 at 15:45; Stop 02/03/17 at 15:46; Status DC Piperacillin Sod/ Tazobactam Sod 3.375 gm/Dextrose 50 ml @ 100 mls/hr 1X ONCE IV ; Start 02/03/17 at 15:45; Stop 02/03/17 at 15:45; Status DC Piperacillin Sod/ Tazobactam Sod (Zosyn) 3.375 gm 1X ONCE IVP Last administered on 02/03/17 15:53; Start 02/03/17 at 15:45; Stop 02/03/17 at 15 :46; Status DC Sodium Chloride 1,000 ml @ 1,000 mls/hr 1X ONCE IV Last administered on 02/03 17:15; Start 02/03/17 at 17:15; Stop 02/03/17 at 18:14; Status DC Piperacillin Sod/ Tazobactam Sod 2.25 gm/Dextrose 50 ml @ 100 mls/hr Q6HRS IV ; Start 02/04/17 at 00:00; Status UNV Metronidazole 100 ml @ 100 mls/hr Q12HR IV Last administered on 02/04/17 08: 41; Start 02/03/17 at 21:00 Magnesium Sulfate/ Dextrose 50 ml @ 25 mls/hr 1X ONCE IV Last administered on 02/03/17 22:06; Start 02/03/17 at 20:00; Stop 02/03/17 at 21:59; Status DC Morphine Sulfate 2 mg PRN Q4HRS PRN IV PAIN Last administered on 02/03/17 20: 51; Start 02/03/17 at 19:30 Multivitamins 10 ml/Thiamine HCl 100 mg/Folic Acid 1 mg/Sodium Chloride 1,011.2 ml @ 1,000.088 mls/hr 1X ONCE IV Last administered on 02/03/17 20:15; Start 02/03/17 at 20:00; Stop 02/03/17 at 21:00; Status DC Multivitamins 10 ml/Thiamine HCl 100 mg/Folic Acid 1 mg/Sodium Chloride 1,011.2 ml @ 100 mls/ hr DAILY IV Last administered on 02/04/17 09:14; Start at 09:00; Stop 02/08/17 at 19:07 Lorazepam (Ativan) 1 mg PRN Q1HR PRN IV For CIWA 8-14; Start 02/03/17 at 19:45 Info (Do NOT chart on this placeholder) 1 each 1X ONCE MC ; Start 02/03/17 at 19:45; Stop 02/03/17 at 19:46; Status UNV Pneumococcal Polyvalent Vaccine (Do NOT chart on this placeholder) 1 each 1X ONCE MC ; Start 02/03/17 at 19:45; Stop 02/03/17 at 19:46; Status UNV Piperacillin Sod/ Tazobactam Sod (Zosyn) 2.25 gm Q6HRS IVP Last administered on 02/04/17 05:56; Start 02/04/17 at 00:00 Lorazepam (Ativan) 2 mg PRN Q1HR PRN IV For CIWA 8-14; Start 02/03/17 at 19:45 Influenza Virus Vaccine Quadrival (Fluarix Quad [id number] Syringe) 0.5 ml ONCE ONCE VAX IM ; Start 02/03/17 at 21:00; Stop 02/03/17 at 21:01; Status DC Pneumococcal Polyvalent Vaccine (Pneumovax 23) 0.5 ml ONCE ONCE VAX IM ; Start 02/03/17 at 12:00; Stop 02/03/17 at 19:44; Status DC Sodium Chloride 1,000 ml @ 100 mls/hr Q10H IV Last administered on 02/04/17 09:14; Start 02/03/17 at 21:45 Sodium Chloride 500 ml @ 500 mls/hr 1X ONCE IV Last administered on 22:07; Start 02/03/17 at 22:30; Stop 02/03/17 at 23:29; Status DC Norepinephrine Bitartrate 250 ml @ 0 mls/hr CONT PRN IV SEE I/O RECORD Last administered on 02/04/17 07:59; Start 02/03/17 at 23:30 Sodium Chloride 500 ml @ 500 mls/hr 1X ONCE IV Last administered on 02:46; Start 02/04/17 at 03:00; Stop 02/04/17 at 03:59; Status DC Active Scripts Active No Active Prescriptions or Reported Medications Vitals/I & O Vital Sign - Last 24 Hours 02/03/17 02/03/17 02/03/17 02/03/17 13:32 13:35 13:41 13:57 Temp 98.4 98.4 Pulse 101 102 97 97 Resp 28 18 19 20 B/P (MAP) 74/48 (57) Pulse Ox 94 94 98 98 O2 Delivery Room Air 02/03/17 02/03/17 02/03/17 02/03/17 14:02 14:11 14:26 14:37 Pulse 93 94 93 Resp 17 18 16 16 Pulse Ox 97 97 97 98 O2 Delivery Room Air 02/03/17 02/03/17 02/03/17 02/03/17 14:41 14:56 15:11 15:19 Pulse 94 93 96 94 Resp 18 20 19 19 Pulse Ox 96 97 98 98 02/03/17 02/03/17 02/03/17 02/03/17 15:56 16:11 16:17 16:26 Pulse 94 91 91 91 Resp 19 20 19 17 Pulse Ox 98 99 99 97 02/03/17 02/03/17 02/03/17 02/03/17 16:41 17:00 17:15 17:30 Temp 98.5 98.5 Pulse 86 92 92 Resp 20 16 16 B/P (MAP) 99/53 (68) 92/ 112/70 (84) Pulse Ox 96 97 97 98 O2 Delivery Room Air Room Air 02/03/17 02/03/17 02/03/17 02/03/17 17:30 19:19 20:00 20:00 Temp 98.6 98.6 Pulse 96 96 Resp 16 18 B/P (MAP) 83/58 (66) 82/51 (61) Pulse Ox 96 96 O2 Delivery Room Air Room Air Room Air Room Air 02/03/17 02/03/17 02/03/17 02/03/17 20:51 21:00 21:30 22:00 Pulse 96 98 Resp 25 18 18 22 B/P (MAP) 90/61 (71) 91/54 (66) Pulse Ox 95 96 95 95 O2 Delivery Room Air Room Air Room Air Room Air 02/03/17 02/04/17 02/04/17 02/04/17 23:00 00:00 00:00 01:00 Temp 98.4 98.4 Pulse 96 94 98 Resp 19 16 20 B/P (MAP) 83/51 (62) 87/70 (76) 83/51 (62) Pulse Ox 95 95 95 O2 Delivery Room Air Room Air Room Air Room Air 02/04/17 02/04/17 02/04/17 02/04/17 02:00 02:45 03:00 04:00 Temp 98.4 98.4 Pulse 97 98 95 94 Resp 21 24 24 20 B/P (MAP) 82/52 (62) 84/52 (63) 96/56 (69) 84/53 (63) Pulse Ox 94 95 94 95 O2 Delivery Room Air Room Air Room Air Room Air 02/04/17 02/04/17 02/04/17 02/04/17 04:00 05:00 06:00 07:00 Pulse 100 93 96 Resp 28 19 22 B/P (MAP) 91/55 (67) 99/60 (73) 72/46 (55) Pulse Ox 96 96 97 O2 Delivery Room Air Room Air Room Air Room Air 02/04/17 02/04/17 02/04/17 07:15 07:55 09:18 Pulse 96 96 Resp 22 21 B/P (MAP) 79/51 (60) 84/48 (60) Pulse Ox 97 96 O2 Delivery Room Air Room Air Room Air Intake and Output 02/03/17 02/03/17 02/04/17 15:00 23:00 07:00 Intake Total 1000 ml 1500 ml 3523 ml Output Total 4 ml 5 ml Balance 1000 ml 1496 ml 3518 ml RENE MARQUEZ MD Feb 04, 2017 09:40
--- NOTE | 2017-02-04 09:46 | PDOC2 ---
GI CONSULT Reason For Consult: GIB, hepatic failure HPI: HPI: 47 y/o male admitted through ER. History supplemented by girlfriend, Rekha. Jaundiced "for awhile," getting worse. Intermittent n/v and loose stools for 4- 5 weeks. Weak, mentally "foggy." No bleeding. Usually drinks 1/2 gallon of vodka daily. Labs: bili 20.7 (now 18.8), AST 256, ALT 39, Alk Phos 213, lactic acid 7.2 (now 4.9), Na 119 (now 124), BUN 36 (now 44), Cr 4.5 (now 4.6), INR 2.7, WBC 20.9 ( now 23.1), Hgb 9.8 (now 8.1), elevated MCV, mag 1.7. US w/ hepatic steatosis, ? GB sludge and GB wall thickening, small amount of ascites. Renal consult pending; per RN, minimal urine output w/ King. PMH: PMH: alcoholism, tonsillectomy FH: Family History: Other (alcoholism) Social History: Smoke: <1 pack per day ALCOHOL: heavy Drugs: None ROS: GEN: Denies fevers, chills, sweats HEENT: Denies blurred vision, sore throat CV: Denies chest pain RESP: Denies shortness of air, cough GI: Per HPI : decreased urine output ENDO: Denies weight changes NEURO: +confusion MSK: +weakness SKIN: +jaundice Vitals: Vitals: Vital Signs Date Time Temp Pulse Resp B/P (MAP) Pulse Ox O2 Delivery O2 Flow Rate FiO2 02/04/17 09:18 96 21 84/48 (60) 96 Room Air 02/04/17 04:00 98.4 98.4 Labs: Labs: Laboratory Tests Test 02/03/17 13:45 02/03/17 17:30 02/03/17 20:35 02/04/17 05:38 White Blood Count 20.9 x10^3/uL (4.0-11.0) 23.1 x10^3/uL (4.0-11.0) Red Blood Count 2.78 x10^6/uL (4.30-5.70) 2.27 x10^6/uL (4.30-5.70) Hemoglobin 9.8 g/dL (13.0-17.5) 8.1 g/dL (13.0-17.5) Hematocrit 30.1 % (39.0-53.0) 25.1 % (39.0-53.0) Mean Corpuscular Volume 108 fL (79-100) 110 fL (79-100) Mean Corpuscular Hemoglobin 35 pg (25-35) 36 pg (25-35) Mean Corpuscular Hemoglobin Concent 33 g/dL (31-37) 33 g/dL (31-37) Red Cell Distribution Width 19.8 % (11.5-14.5) 19.4 % (11.5-14.5) Platelet Count 249 x10^3/uL (140-400) 259 x10^3/uL (140-400) Neutrophils (%) (Auto) 82 % (31-73) 78 % (31-73) Lymphocytes (%) (Auto) 11 % (24-48) 14 % (24-48) Monocytes (%) (Auto) 7 % (0-9) 7 % (0-9) Eosinophils (%) (Auto) 0 % (0-3) 0 % (0-3) Basophils (%) (Auto) 1 % (0-3) 1 % (0-3) Neutrophils # (Auto) 17.1 x10^3uL (1.8-7.7) 18.0 x10^3uL (1.8-7.7) Lymphocytes # (Auto) 2.2 x10^3/uL (1.0-4.8) 3.3 x10^3/uL (1.0-4.8) Monocytes # (Auto) 1.5 x10^3/uL (0.0-1.1) 1.6 x10^3/uL (0.0-1.1) Eosinophils # (Auto) 0.0 x10^3/uL (0.0-0.7) 0.0 x10^3/uL (0.0-0.7) Basophils # (Auto) 0.1 x10^3/uL (0.0-0.2) 0.1 x10^3/uL (0.0-0.2) Segmented Neutrophils % 80 % (35-66) Band Neutrophils % 8 % (0-9) Lymphocytes % 7 % (24-48) Monocytes % 5 % (0-10) Toxic Granulation Slight Toxic Vacuolation Mod Platelet Estimate Adequate (ADEQUATE) Polychromasia Slight Anisocytosis Slight Macrocytosis Mod Prothrombin Time 27.1 SEC (11.7-14.0) Prothromb Time International Ratio 2.7 (0.8-1.1) Sodium Level 119 mmol/L (136-145) 125 mmol/L (136-145) 124 mmol/L (136-145) Potassium Level 4.0 mmol/L (3.5-5.1) 4.1 mmol/L (3.5-5.1) 4.0 mmol/L (3.5-5.1) Chloride Level 76 mmol/L (98-107) 82 mmol/L (98-107) 87 mmol/L (98-107) Carbon Dioxide Level 22 mmol/L (21-32) 20 mmol/L (21-32) 17 mmol/L (21-32) Anion Gap 21 (6-14) 23 (6-14) 20 (6-14) Blood Urea Nitrogen 36 mg/dL (8-26) 37 mg/dL (8-26) 44 mg/dL (8-26) Creatinine 4.5 mg/dL (0.7-1.3) 4.5 mg/dL (0.7-1.3) 4.6 mg/dL (0.7-1.3) Estimated GFR (Cockcroft-Gault) 14.1 14.1 13.7 BUN/Creatinine Ratio 8 (6-20) 8 (6-20) 10 (6-20) Glucose Level 73 mg/dL (70-99) 74 mg/dL (70-99) 84 mg/dL (70-99) Lactic Acid Level 7.2 mmol/L (0.4-2.0) 4.9 mmol/L (0.4-2.0) Calcium Level 7.0 mg/dL (8.5-10.1) 6.4 mg/dL (8.5-10.1) 6.1 mg/dL (8.5-10.1) Magnesium Level 1.1 mg/dL (1.8-2.4) 1.0 mg/dL (1.8-2.4) 1.7 mg/dL (1.8-2.4) Total Bilirubin 20.7 mg/dL (0.2-1.0) 18.2 mg/dL (0.2-1.0) 18.8 mg/dL (0.2-1.0) Aspartate Amino Transf (AST/SGOT) 289 U/L (15-37) 263 U/L (15-37) 256 U/L (15-37) Alanine Aminotransferase (ALT/SGPT) 42 U/L (16-63) 40 U/L (16-63) 39 U/L (16-63) Alkaline Phosphatase 266 U/L (46-116) 228 U/L (46-116) 213 U/L (46-116) Ammonia 36 mcmol/L (11-34) Total Protein 5.8 g/dL (6.4-8.2) 4.9 g/dL (6.4-8.2) 5.0 g/dL (6.4-8.2) Albumin 1.7 g/dL (3.4-5.0) 1.5 g/dL (3.4-5.0) 1.4 g/dL (3.4-5.0) Albumin/Globulin Ratio 0.4 (1.0-1.7) 0.4 (1.0-1.7) 0.4 (1.0-1.7) Lipase 50 U/L (73-393) Allergies: Coded Allergies: No Known Drug Allergies (Unverified , 01/18/17) Medications: Current Medications Medications (Trade) Dose Ordered Sig/Steve Route PRN Reason Start Time Stop Time Status Last Admin Dose Admin Sodium Chloride 1,000 ml @ 1,000 mls/hr 1X ONCE IV 02/03/17 14:00 02/03/17 14:59 DC 02/03/17 14:00 Fentanyl Citrate (Fentanyl 2ml Vial) 50 mcg 1X ONCE IV 02/03/17 14:30 02/03/17 14:31 DC 02/03/17 14:37 Sodium Chloride 500 ml @ 500 mls/hr 1X ONCE IV 02/03/17 15:00 02/03/17 15:59 DC 02/03/17 14:59 Norepinephrine Bitartrate 250 ml @ 0 mls/hr 1X ONCE IV 02/03/17 15:45 02/03/17 15:46 DC 02/03/17 16:02 Piperacillin Sod/ Tazobactam Sod (Zosyn) 3.375 gm 1X ONCE IVP 02/03/17 15:45 02/03/17 15:46 DC 02/03/17 15:53 Sodium Chloride 1,000 ml @ 1,000 mls/hr 1X ONCE IV 02/03/17 17:15 02/03/17 18:14 DC 02/03/17 17:15 Metronidazole 100 ml @ 100 mls/hr Q12HR IV 02/03/17 21:00 02/04/17 08:41 Magnesium Sulfate/ Dextrose 50 ml @ 25 mls/hr 1X ONCE IV 02/03/17 20:00 02/03/17 21:59 DC 02/03/17 22:06 Morphine Sulfate 2 mg PRN Q4HRS PRN IV PAIN 02/03/17 19:30 02/03/17 20:51 Multivitamins 10 ml/Thiamine HCl 100 mg/Folic Acid 1 mg/Sodium Chloride 1,011.2 ml @ 1,000.088 mls/hr 1X ONCE IV 02/03/17 20:00 02/03/17 21:00 DC 02/03/17 20:15 Multivitamins 10 ml/Thiamine HCl 100 mg/Folic Acid 1 mg/Sodium Chloride 1,011.2 ml @ 100 mls/ hr DAILY IV 02/04/17 09:00 02/08/17 19:07 02/04/17 09:14 Piperacillin Sod/ Tazobactam Sod (Zosyn) 2.25 gm Q6HRS IVP 02/04/17 00:00 02/04/17 05:56 Sodium Chloride 1,000 ml @ 100 mls/hr Q10H IV 02/03/17 21:45 02/04/17 09:14 Sodium Chloride 500 ml @ 500 mls/hr 1X ONCE IV 02/03/17 22:30 02/03/17 23:29 DC 02/03/17 22:07 Norepinephrine Bitartrate 250 ml @ 0 mls/hr CONT PRN IV SEE I/O RECORD 02/03/17 23:30 02/04/17 07:59 Sodium Chloride 500 ml @ 500 mls/hr 1X ONCE IV 02/04/17 03:00 02/04/17 03:59 DC 02/04/17 02:46 Imaging: Imaging: RUQ US IMPRESSION: 1. Increased hepatic echogenicity compatible with hepatic steatosis. 2. The gallbladder is filled with echogenic material, probably sludge. 3. Diffuse gallbladder wall thickening which can be due to a variety of causes including liver disease, hypoproteinemia or cholecystitis. 4. Small volume of ascites. CXR Impression: Decreased inspiration is seen. No acute radiographic abnormality is seen. PE: GEN: NAD HEENT: +sclera icteric LUNGS: CTAB anteriorly HEART: tachycardic ABD: some distention, non-tender EXTREMITY: No edema SKIN: +jaundice NEURO/PSYCH: confused A/P: A/P: Alcoholism Jaundice, n/v, weakness, confusion Renal failure, alcoholic hepatitis, leukocytosis, coagulopathy, anemia, hypoalbuminemia -- Reviewed w/ Dr. Carbone - concern for hepatorenal syndrome, await nephrology eval. TAI CONDON Feb 04, 2017 09:46
[2017-02-04] MEDS ORDERED: MAGNESIUM SULFATE 2GM 50 ML IV PRN (10:15)
[2017-02-04] MEDS ORDERED: LIDOCAINE WITH 8.4% SOD BICARB 3 ML DISP.SYRIN. IJ ONE ×2 (11:18→12:30)
[2017-02-04] MEDS ORDERED: HEPARIN for IV BOLUS 10,000 UNIT/10 ML VIAL. ONE (11:19)
[2017-02-04] MEDS: SODIUM BICARB ADULT 8.4% 50 MEQ/50 ML DISP.SYRIN. IV SCH ×2 (11:19→11:55)
[2017-02-04] MEDS ORDERED: IV NORMAL SALINE 500ML BAG 500 ML IV PRN (12:15)
--- NOTE | 2017-02-04 12:56 | PDOC ---
BRIEF OPERATIVE NOTE Pre-Op Diagnosis Liver failure Post-Op Diagnosis same Procedure Performed Right IJ Central Line and RIJ temp HD Catheter Surgeon Fallon Anesthesia Type: Local Findings Excellent manual flows from all lumens Complications No immediate MIRIAM WILLIS MD Feb 04, 2017 12:56
--- NOTE | 2017-02-04 13:13 | RAD ---
Procedure: Temporary hemodialysis catheter placement at the bedside, and central line placement at the bedside Clinical Indication: 47-year-old with acute liver failure and acute kidney injury Sedation: Local anesthesia only Antibiotics: None Fluoro Time: Not applicable Contrast: None Sterility: All elements of maximal sterile barrier technique including the use of a cap, mask, sterile gown, sterile gloves, large sterile sheet, appropriate hand hygiene, and 2% chlorhexidine for cutaneous antisepsis (or acceptable alternative antiseptic per current guidelines) were followed for this procedure. Consent: The procedure was explained in its entirety to the patient or the patients designated solar manufacturer's representative by a member of the treatment team, including a discussion of the risks, benefits and commonly accepted alternatives to the procedure, as well as the expected consequences of no therapy whatsoever. Discussion of the risks included, but was not limited to, those that are most frequent and those that are rare but possibly severe or life-threatening, as well as the possibility of unforeseen complications. Technique and Findings: Following informed consent, the patient was prepped and draped in the usual sterile fashion. Ultrasound interrogation of the right neck revealed patency and compressibility of the right internal jugular vein. An 18-gauge sheath needle was then advanced into this vein under ultrasound guidance, and a Hardcopy ultrasound image was recorded. The needle was exchanged over wire for a small dilator followed by a triple-lumen central line. All 3 lm flushed and aspirated with ease. This catheter was sutured to the skin. A 21-gauge micropuncture needle was used to gain access to the right internal jugular vein in a separate location after 1% Lidocaine was used to achieve local anesthesia. A hardcopy ultrasound image was again recorded. The needle was exchanged over a wire for serial dilators followed by a 27 m Schon temporary hemodialysis catheter which was deployed in the expected location of the mid right atrium. The catheter flow rates were assessed manually and found to be excellent. The catheter was then flushed, packed with Heparin, capped, and sutured to the skin. Chest x-ray was then obtained to assess line position. Complications: No immediate Impression: 1. Ultrasound guided placement of a temporary hemodialysis catheter which exhibits excellent manual flow rates as described. 2. Ultrasound guided placement of a central line in the right internal jugular vein.
--- NOTE | 2017-02-04 13:28 | CONS ---
DATE OF CONSULTATION: PRIMARY PHYSICIAN: Dr. Herr. REASON FOR CONSULTATION: Acute renal failure. HISTORY OF PRESENT ILLNESS: The patient is a 47-year-old gentleman who has been jaundiced for quite some time. He and his girlfriend gave deferring histories with regards to what he has been doing; however, it is known that he drinks at least half a pint of Walker a day and smokes about a pack per day. He was getting increasingly weak and tired and was brought back to the ER. He was here previously and was given IV fluids and sent home. This was earlier this month, he was noted to have nausea, vomiting, possible gastritis, creatinine was normal at that time. We were asked to see him since his creatinine is now 4.5. He initially presented with a sodium of 119, anion gap of 21 with a lactate of 7.2, total bilirubin of 20.7, and elevated LFTs. His urine output is minimal, is dark and discolored. He is noted to have diffuse gallbladder wall thickening as well as increased hepatic echogenicity consistent with hepatic steatosis on the ultrasound. He has been taking NSAIDs at home. PAST MEDICAL HISTORY: Alcoholism and tonsillectomy. Both parents are . SOCIAL HISTORY: He lives with his girlfriend. FAMILY HISTORY: Positive smoking and alcohol use as described above. REVIEW OF SYSTEMS: Generalized weakness, minimal nausea. He denies NSAID, but his girlfriend says he has been taking ibuprofen. He was hypotensive on presentation. PHYSICAL EXAMINATION: VITAL SIGNS: Currently available to nh shows blood pressure of 80/50, pulse of 97, respirations 20, 95% on room air. GENERAL: He is awake, jaundiced. HEAD: NC/AT. LUNGS: Clear. ABDOMEN: Rare if any bowel sounds. No CVA tenderness. No suprapubic tenderness. EXTREMITIES: Lower extremities have trace if any edema. SKIN: No asterixis noted. LABORATORY DATA: Available to me, sodium 124, potassium 4, CO2 of 17, gap 20, lactate 4.9 on most recent check, calcium 6.1, total bilirubin is 18.8, albumin is 1.4. ASSESSMENT AND PLAN: 1. Acute renal failure, possibly from: A. Hepatorenal syndrome. B. Nonsteroidal anti-inflammatory drugs. C. Volume depletion. D. Pigment nephropathy. E. Other etiologies cannot be ruled out. Hypotension may be contributing. IV fluids have been ordered and approximately 3-1/2 to 4 liters have been administered already. 2. Oliguria not responding to fluids yet, may need dialysis initiation. 3. Metabolic acidosis. IV bicarbonate will be ordered. 4. Hyponatremia. IV bicarbonate and IV albumin are ordered. 5. Severe hypoalbuminemia, presumed from liver dysfunction and poor p.o. intake. IV albumin for now, especially to help with hemodynamics. 6. Hypotension, intravascular volume depletion. IV fluids and IV albumin are ordered. YOUNG MCFADDEN MD DR: LUCAS/alejandro JOB#: [id number] / [id number]
[2017-02-04] MEDS ORDERED: ZIPRASIDONE IM 20 MG VIAL. IM PRN (14:00)
--- NOTE | 2017-02-04 14:07 | RAD ---
Renal sonography History: Chronic kidney disease. Acute renal failure. Findings: The longitudinal and AP and transverse dimensions of the right kidney are 10.5 cm and 5.7 cm and 7.1 cm respectively. The longitudinal and AP and transverse dimensions of the left kidney are 10.2 cm and 6.7 cm and 5.7 cm respectively. No hydronephrosis or renal mass or perinephric fluid collection is seen on either side. Small amount of ascites is present. The urinary bladder is empty. King catheter is present within the urinary bladder. The resistive index of the right kidney is 0.80. The resistive index of the left kidney is 0.86. IMPRESSION: No hydronephrosis.
[2017-02-04] MEDS: ALBUMIN HUMAN 25% 100 ML IV SCH ×2 (14:39→21:20)
[2017-02-04 15:30] LABS: BILIRUBIN,URINE LARGE (NEG); GLUCOSE,URINE NEGATIVE (NEG); PROTEIN,URINE >=300 mg/dL (NEG-TRACE)
[2017-02-04 15:31] LABS: BACTERIA,URINE MANY /HPF (0-FEW); NITRITE,URINE NEGATIVE (NEG)
[2017-02-04 15:32] LABS: SQUAMOUS EPITHELIAL CELL,UR OCC /LPF
--- NOTE | 2017-02-04 16:01 | RAD ---
Portable chest, 02/04/2017: History: Check line placement Comparison is made yesterday study. A right jugular dialysis type catheter has been inserted extending into the mid right atrium. A smaller caliber second right jugular catheter has also been placed extending into the inferior aspect of the right atrium near the tricuspid valve level. The heart appears to be within normal limits in size. There is minimal basilar atelectasis. The upper lung faulkner are clear. There is no evidence of pleural fluid or pneumothorax. IMPRESSION: 1. Two right jugular venous catheters have been placed extending into the right atrium. 2. Minimal bibasilar atelectasis.
[2017-02-04] MEDS: LACTOBACILLUS RHAMNOSUS GG 1 CAPSULE. PO SCH (19:54)
[2017-02-05] VITALS (12 sets, daily range): BP systolic 72–96; BP diastolic 41–58
[2017-02-05] MEDS: NOREPINEPHRIN PREMIX 250 ML IV PRN ×2 (03:43→09:09)
[2017-02-05] MEDS: MORPHINE SULFATE 2 MG/ML DISP.SYRIN. IV PRN (04:00)
[2017-02-05] MEDS: PIPERACILLIN/TAZO IV Push 2.25 GM VIAL. IVP SCH (05:28)
[2017-02-05 06:09] LABS: BASO # 0.1 x10^3/uL (0.0-0.2); BASO % 0 % (0-3); EOS % 0 % (0-3); LYMPH % 9 % (24-48); MEAN CORPUSCULAR HEMOGLOBIN 37 pg (25-35); MEAN CORPUSCULAR HGB CONC 34 g/dL (31-37); MEAN CORPUSCULAR VOLUME 111 fL (79-100); MONO % 9 % (0-9); NEUT % 82 % (31-73); PLATELET COUNT 208 x10^3/uL (140-400); RED BLOOD COUNT 1.47 x10^6/uL (4.30-5.70); RED CELL DISTRIBUTION WIDTH 19.7 % (11.5-14.5); WHITE BLOOD COUNT 23.3 x10^3/uL (4.0-11.0)
[2017-02-05 06:11] LABS: ALBUMIN 1.9 g/dL (3.4-5.0); ALBUMIN/GLOBULIN RATIO 0.8 (1.0-1.7); CREATININE 5.7 mg/dL (0.7-1.3); GFR 10.7; PHOSPHORUS 2.9 mg/dL (2.6-4.7); POTASSIUM 3.5 mmol/L (3.5-5.1); TOTAL BILIRUBIN 19.2 mg/dL (0.2-1.0); TOTAL PROTEIN 4.3 g/dL (6.4-8.2)
[2017-02-05 06:18] LABS: CALCIUM 5.7 mg/dL (8.5-10.1)
[2017-02-05 06:34] LABS: HEMATOCRIT 16.2 % (39.0-53.0); HEMOGLOBIN 5.5 g/dL (13.0-17.5)
[2017-02-05] MEDS ORDERED: MAGNESIUM SULFATE 2GM 50 ML IV ONE (07:00)
--- NOTE | 2017-02-05 08:41 | PDOC ---
Infectious Disease Note ROS ROS Vital Sign Vital Signs Vital Signs Date Time Temp Pulse Resp B/P (MAP) Pulse Ox O2 Delivery O2 Flow Rate FiO2 02/05/17 08:07 97.8 98 28 95/55 (68) 91 Nasal Cannula 5.0 97.8 Labs Lab Laboratory Tests Test 02/04/17 10:00 02/04/17 13:15 02/05/17 05:20 Lactic Acid Level 5.9 mmol/L (0.4-2.0) Creatine Kinase 118 U/L (39-308) Urine Collection Type U cath Urine Color Green Urine Clarity Hazy Urine pH 6.0 Urine Specific [place] 1.025 Urine Protein >=300 mg/dL (NEG-TRACE) Urine Glucose (UA) Negative mg/dL (NEG) Urine Ketones (Stick) Negative mg/dL (NEG) Urine Blood Large (NEG) Urine Nitrite Negative (NEG) Urine Bilirubin Large (NEG) Urine Urobilinogen Dipstick 1.0 mg/dL (0.2 mg/dL) Urine Leukocyte Esterase Large (NEG) Urine RBC 1-2 /HPF (0-2) Urine WBC 1-4 /HPF (0-4) Urine Squamous Epithelial Cells Occ /LPF Urine Bacteria Many /HPF (0-FEW) White Blood Count 23.3 x10^3/uL (4.0-11.0) Red Blood Count 1.47 x10^6/uL (4.30-5.70) Hemoglobin 5.5 g/dL (13.0-17.5) Hematocrit 16.2 % (39.0-53.0) Mean Corpuscular Volume 111 fL (79-100) Mean Corpuscular Hemoglobin 37 pg (25-35) Mean Corpuscular Hemoglobin Concent 34 g/dL (31-37) Red Cell Distribution Width 19.7 % (11.5-14.5) Platelet Count 208 x10^3/uL (140-400) Neutrophils (%) (Auto) 82 % (31-73) Lymphocytes (%) (Auto) 9 % (24-48) Monocytes (%) (Auto) 9 % (0-9) Eosinophils (%) (Auto) 0 % (0-3) Basophils (%) (Auto) 0 % (0-3) Neutrophils # (Auto) 19.1 x10^3uL (1.8-7.7) Lymphocytes # (Auto) 2.0 x10^3/uL (1.0-4.8) Monocytes # (Auto) 2.1 x10^3/uL (0.0-1.1) Eosinophils # (Auto) 0.0 x10^3/uL (0.0-0.7) Basophils # (Auto) 0.1 x10^3/uL (0.0-0.2) Sodium Level 131 mmol/L (136-145) Potassium Level 3.5 mmol/L (3.5-5.1) Chloride Level 93 mmol/L (98-107) Carbon Dioxide Level 17 mmol/L (21-32) Anion Gap 21 (6-14) Blood Urea Nitrogen 53 mg/dL (8-26) Creatinine 5.7 mg/dL (0.7-1.3) Estimated GFR (Cockcroft-Gault) 10.7 BUN/Creatinine Ratio 9 (6-20) Glucose Level 97 mg/dL (70-99) Calcium Level 5.7 mg/dL (8.5-10.1) Phosphorus Level 2.9 mg/dL (2.6-4.7) Magnesium Level 1.4 mg/dL (1.8-2.4) Total Bilirubin 19.2 mg/dL (0.2-1.0) Aspartate Amino Transf (AST/SGOT) 223 U/L (15-37) Alanine Aminotransferase (ALT/SGPT) 36 U/L (16-63) Alkaline Phosphatase 140 U/L (46-116) Total Protein 4.3 g/dL (6.4-8.2) Albumin 1.9 g/dL (3.4-5.0) Albumin/Globulin Ratio 0.8 (1.0-1.7) Objective Assessment Sepsis - POA - tiny GPC/Lactic acidosis/Hypotension -on 30 of Levophed Leukocytosis ? UTI - POA ? Hepatorenal syndrome COLLEEN Anemia - ? Bleed GB sludge Plan Plan of Care Agree with Zosyn/Flagyl Stress steroids F/u labs and cults Await HD Await CXR Poor prognosis D/w Dr. Herr 35 mins # [id number] NAOMIE HUTSON MD Feb 05, 2017 08:41
[2017-02-05] MEDS ORDERED: HYDROCORTISONE SOD SUCC/PF 100 MG/2 ML VIAL. IV SCH (08:45)
[2017-02-05] MEDS: LACTOBACILLUS RHAMNOSUS GG 1 CAPSULE. PO SCH (09:00)
[2017-02-05] MEDS: ALBUMIN HUMAN 25% 100 ML IV SCH (09:08)
--- NOTE | 2017-02-05 09:09 | RAD ---
Portable chest, 02/05/2017: History: Worsening shortness of breath Comparison is made to yesterday's study. The two right jugular venous catheters are unchanged in positions extending into the right atrium. The heart is within normal limits in size. Moderate patchy bilateral pulmonary infiltrates have developed. The underlying pulmonary vascularity is poorly defined. No pleural fluid or pneumothorax is evident. IMPRESSION: Moderate patchy bilateral pulmonary infiltrates have developed suggesting pulmonary edema. Pneumonia is a less likely possibility.
[2017-02-05] MEDS: MULTIVIT INFUSN,ADULT 4,VIT K 10 ML, THIAMINE 100 MG, FOLIC ACID 1 MG in IV NORMAL SALI... IV SCH (09:10)
--- NOTE | 2017-02-05 09:18 | PDOC ---
PROGRESS NOTES Chief Complaint Chief Complaint Jaundice ASSESSMENT AND PLAN: 1. Septic shock: hypotension barely responsive to IVF boluses and levophed. persistent leukocytosis, lactic acidosis. blood cult with tiny GPC; on empiric Abx. d/w Dr Kaba: add stress steroids 2. Hypoxia: STAT CXR reviewed: pulm edema, poss consolid on R>L. suspect fluid O/L due to IVF and no U/O. needs HD/UF, but difficult with hypotension. pulm consult 3. Renal failure: creat worsening. CVVT planned 4. metabolic acidosis: worsening. 5. Hyponatremia: critical at admit, improving. 6. Hypocalcemia: corrected CA 7.4 7. Hepatic failure: unchanged labs, elevated ammonia. acute on chronic picture, massive hepatosplenomegaly 8. ?GIB: mult melanotic stools. GI consulted 9. Anemia: macrocytic. signif worse, multifactorial: suspected GIB, renal failure, inflammation, dilution, chronic EtOH. transfuse PRBC x2. consider EPO 10. Thrombocytopenia: stable in 100 range. prob 2/2 EtOH abuse 11. EtOH abuse: neg EtOH level at admit, sudden onset of agitation yesterday ; [facility] protocol, required geodon x1 IM 12. Hypoalbuminemia: severe. 2/2 liver failure, inflammation, malnutrition Prognosis: poor. d/w girlfriend. requested. remains full code for now. History of Present Illness History of Present Illness unresponsive, moving extremities spontaneously. not following commands Vitals Vitals Vital Signs Date Time Temp Pulse Resp B/P (MAP) Pulse Ox O2 Delivery O2 Flow Rate FiO2 02/05/17 08:07 97.8 98 28 95/55 (68) 91 Nasal Cannula 5.0 97.8 Physical Exam General: No acute distress, Other (unresponsive, moving extremities spontaneously. not following commands) Heart: Regular rate Lungs: Other (rales R>L, no wheezes) Abdomen: Other (massive hepatosplenomegaly) Extremities: No clubbing, Other (1+ edema throughout) Skin: Other (massive jaundice) Labs LABS Laboratory Tests Test 02/04/17 10:00 02/04/17 13:15 02/05/17 05:20 Lactic Acid Level 5.9 mmol/L (0.4-2.0) Creatine Kinase 118 U/L (39-308) Urine Collection Type U cath Urine Color Green Urine Clarity Hazy Urine pH 6.0 Urine Specific [place] 1.025 Urine Protein >=300 mg/dL (NEG-TRACE) Urine Glucose (UA) Negative mg/dL (NEG) Urine Ketones (Stick) Negative mg/dL (NEG) Urine Blood Large (NEG) Urine Nitrite Negative (NEG) Urine Bilirubin Large (NEG) Urine Urobilinogen Dipstick 1.0 mg/dL (0.2 mg/dL) Urine Leukocyte Esterase Large (NEG) Urine RBC 1-2 /HPF (0-2) Urine WBC 1-4 /HPF (0-4) Urine Squamous Epithelial Cells Occ /LPF Urine Bacteria Many /HPF (0-FEW) White Blood Count 23.3 x10^3/uL (4.0-11.0) Red Blood Count 1.47 x10^6/uL (4.30-5.70) Hemoglobin 5.5 g/dL (13.0-17.5) Hematocrit 16.2 % (39.0-53.0) Mean Corpuscular Volume 111 fL (79-100) Mean Corpuscular Hemoglobin 37 pg (25-35) Mean Corpuscular Hemoglobin Concent 34 g/dL (31-37) Red Cell Distribution Width 19.7 % (11.5-14.5) Platelet Count 208 x10^3/uL (140-400) Neutrophils (%) (Auto) 82 % (31-73) Lymphocytes (%) (Auto) 9 % (24-48) Monocytes (%) (Auto) 9 % (0-9) Eosinophils (%) (Auto) 0 % (0-3) Basophils (%) (Auto) 0 % (0-3) Neutrophils # (Auto) 19.1 x10^3uL (1.8-7.7) Lymphocytes # (Auto) 2.0 x10^3/uL (1.0-4.8) Monocytes # (Auto) 2.1 x10^3/uL (0.0-1.1) Eosinophils # (Auto) 0.0 x10^3/uL (0.0-0.7) Basophils # (Auto) 0.1 x10^3/uL (0.0-0.2) Sodium Level 131 mmol/L (136-145) Potassium Level 3.5 mmol/L (3.5-5.1) Chloride Level 93 mmol/L (98-107) Carbon Dioxide Level 17 mmol/L (21-32) Anion Gap 21 (6-14) Blood Urea Nitrogen 53 mg/dL (8-26) Creatinine 5.7 mg/dL (0.7-1.3) Estimated GFR (Cockcroft-Gault) 10.7 BUN/Creatinine Ratio 9 (6-20) Glucose Level 97 mg/dL (70-99) Calcium Level 5.7 mg/dL (8.5-10.1) Phosphorus Level 2.9 mg/dL (2.6-4.7) Magnesium Level 1.4 mg/dL (1.8-2.4) Total Bilirubin 19.2 mg/dL (0.2-1.0) Aspartate Amino Transf (AST/SGOT) 223 U/L (15-37) Alanine Aminotransferase (ALT/SGPT) 36 U/L (16-63) Alkaline Phosphatase 140 U/L (46-116) Total Protein 4.3 g/dL (6.4-8.2) Albumin 1.9 g/dL (3.4-5.0) Albumin/Globulin Ratio 0.8 (1.0-1.7) RENE MARQUEZ MD Feb 05, 2017 09:18
--- NOTE | 2017-02-05 09:52 | PDOC ---
PROGRESS NOTES Subjective Subjective SEEN IN FOLLOW UP OF ARF Objective Objective Vital Signs Date Time Temp Pulse Resp B/P (MAP) Pulse Ox O2 Delivery O2 Flow Rate FiO2 02/05/17 09:03 96 30 85/52 (63) 92 Venturi Mask 15.0 02/05/17 08:07 97.8 97.8 Intake and Output 02/05/17 07:00 Intake Total 5765 ml Output Total 12 ml Balance 5753 ml Intake Oral 145 ml IV Total 5620 ml Output Urine Total 11 ml Stool Total 1 ml # Bowel Movements 5 Physical Exam Abdomen: Normal bowel sounds, Soft, No tenderness, No hepatosplenomegaly, No masses Heart: Regular rate, Normal S1, Normal S2, No murmurs, Gallops Extremities: No clubbing, No cyanosis, No edema, Normal pulses, No tenderness/ swelling General: Alert, Oriented X3, Cooperative, No acute distress Lungs: Clear to auscultation, Normal air movement Diagnosis RENAL FAILURE: Acute (Acute tubular necrosis) Assessment Assessment Problems Medical Problems: (1) Alcohol abuse Status: Acute (2) Anemia Status: Acute (3) Dehydration Status: Acute (4) Electrolyte abnormality Status: Acute (5) Hypotension Status: Acute (6) Increased ammonia level Status: Acute (7) Leukocytosis Status: Acute (8) Liver failure Status: Acute Plan Plan of Care HE IS WORSENING. HE IS HEMODYNAMICALLY UNSTABLE ON 2 VASOPRESSORS. HE IS PROFOUNDLY ANEMIC AND HIS RENAL FUNCTION IS WORSENING. HAVE DISCUSSED WITH HID SIG OTHER AND HAVE ADVISED PALLIATIVE CARE. IPC HAS DONE THE SAME. ALL ARE AGREEABLE. WILL SIGN OFF. Comment Review of Relevant I have reviewed the following items neetu (where applicable) has been applied. Labs Laboratory Tests Test 02/03/17 13:45 02/03/17 17:30 02/03/17 19:20 02/03/17 20:35 White Blood Count 20.9 x10^3/uL (4.0-11.0) Red Blood Count 2.78 x10^6/uL (4.30-5.70) Hemoglobin 9.8 g/dL (13.0-17.5) Hematocrit 30.1 % (39.0-53.0) Mean Corpuscular Volume 108 fL (79-100) Mean Corpuscular Hemoglobin 35 pg (25-35) Mean Corpuscular Hemoglobin Concent 33 g/dL (31-37) Red Cell Distribution Width 19.8 % (11.5-14.5) Platelet Count 249 x10^3/uL (140-400) Neutrophils (%) (Auto) 82 % (31-73) Lymphocytes (%) (Auto) 11 % (24-48) Monocytes (%) (Auto) 7 % (0-9) Eosinophils (%) (Auto) 0 % (0-3) Basophils (%) (Auto) 1 % (0-3) Neutrophils # (Auto) 17.1 x10^3uL (1.8-7.7) Lymphocytes # (Auto) 2.2 x10^3/uL (1.0-4.8) Monocytes # (Auto) 1.5 x10^3/uL (0.0-1.1) Eosinophils # (Auto) 0.0 x10^3/uL (0.0-0.7) Basophils # (Auto) 0.1 x10^3/uL (0.0-0.2) Segmented Neutrophils % 80 % (35-66) Band Neutrophils % 8 % (0-9) Lymphocytes % 7 % (24-48) Monocytes % 5 % (0-10) Toxic Granulation Slight Toxic Vacuolation Mod Platelet Estimate Adequate (ADEQUATE) Polychromasia Slight Anisocytosis Slight Macrocytosis Mod Prothrombin Time 27.1 SEC (11.7-14.0) Prothromb Time International Ratio 2.7 (0.8-1.1) Sodium Level 119 mmol/L (136-145) 125 mmol/L (136-145) Potassium Level 4.0 mmol/L (3.5-5.1) 4.1 mmol/L (3.5-5.1) Chloride Level 76 mmol/L (98-107) 82 mmol/L (98-107) Carbon Dioxide Level 22 mmol/L (21-32) 20 mmol/L (21-32) Anion Gap 21 (6-14) 23 (6-14) Blood Urea Nitrogen 36 mg/dL (8-26) 37 mg/dL (8-26) Creatinine 4.5 mg/dL (0.7-1.3) 4.5 mg/dL (0.7-1.3) Estimated GFR (Cockcroft-Gault) 14.1 14.1 BUN/Creatinine Ratio 8 (6-20) 8 (6-20) Glucose Level 73 mg/dL (70-99) 74 mg/dL (70-99) Lactic Acid Level 7.2 mmol/L (0.4-2.0) 4.9 mmol/L (0.4-2.0) Calcium Level 7.0 mg/dL (8.5-10.1) 6.4 mg/dL (8.5-10.1) Magnesium Level 1.1 mg/dL (1.8-2.4) 1.0 mg/dL (1.8-2.4) Total Bilirubin 20.7 mg/dL (0.2-1.0) 18.2 mg/dL (0.2-1.0) Aspartate Amino Transf (AST/SGOT) 289 U/L (15-37) 263 U/L (15-37) Alanine Aminotransferase (ALT/SGPT) 42 U/L (16-63) 40 U/L (16-63) Alkaline Phosphatase 266 U/L (46-116) 228 U/L (46-116) Ammonia 36 mcmol/L (11-34) Total Protein 5.8 g/dL (6.4-8.2) 4.9 g/dL (6.4-8.2) Albumin 1.7 g/dL (3.4-5.0) 1.5 g/dL (3.4-5.0) Albumin/Globulin Ratio 0.4 (1.0-1.7) 0.4 (1.0-1.7) Lipase 50 U/L (73-393) Nasal Screen MRSA (PCR) Negative (Negative) Test 02/04/17 05:38 02/04/17 10:00 02/04/17 13:15 02/05/17 05:20 White Blood Count 23.1 x10^3/uL (4.0-11.0) 23.3 x10^3/uL (4.0-11.0) Red Blood Count 2.27 x10^6/uL (4.30-5.70) 1.47 x10^6/uL (4.30-5.70) Hemoglobin 8.1 g/dL (13.0-17.5) 5.5 g/dL (13.0-17.5) Hematocrit 25.1 % (39.0-53.0) 16.2 % (39.0-53.0) Mean Corpuscular Volume 110 fL (79-100) 111 fL (79-100) Mean Corpuscular Hemoglobin 36 pg (25-35) 37 pg (25-35) Mean Corpuscular Hemoglobin Concent 33 g/dL (31-37) 34 g/dL (31-37) Red Cell Distribution Width 19.4 % (11.5-14.5) 19.7 % (11.5-14.5) Platelet Count 259 x10^3/uL (140-400) 208 x10^3/uL (140-400) Neutrophils (%) (Auto) 78 % (31-73) 82 % (31-73) Lymphocytes (%) (Auto) 14 % (24-48) 9 % (24-48) Monocytes (%) (Auto) 7 % (0-9) 9 % (0-9) Eosinophils (%) (Auto) 0 % (0-3) 0 % (0-3) Basophils (%) (Auto) 1 % (0-3) 0 % (0-3) Neutrophils # (Auto) 18.0 x10^3uL (1.8-7.7) 19.1 x10^3uL (1.8-7.7) Lymphocytes # (Auto) 3.3 x10^3/uL (1.0-4.8) 2.0 x10^3/uL (1.0-4.8) Monocytes # (Auto) 1.6 x10^3/uL (0.0-1.1) 2.1 x10^3/uL (0.0-1.1) Eosinophils # (Auto) 0.0 x10^3/uL (0.0-0.7) 0.0 x10^3/uL (0.0-0.7) Basophils # (Auto) 0.1 x10^3/uL (0.0-0.2) 0.1 x10^3/uL (0.0-0.2) Sodium Level 124 mmol/L (136-145) 131 mmol/L (136-145) Potassium Level 4.0 mmol/L (3.5-5.1) 3.5 mmol/L (3.5-5.1) Chloride Level 87 mmol/L (98-107) 93 mmol/L (98-107) Carbon Dioxide Level 17 mmol/L (21-32) 17 mmol/L (21-32) Anion Gap 20 (6-14) 21 (6-14) Blood Urea Nitrogen 44 mg/dL (8-26) 53 mg/dL (8-26) Creatinine 4.6 mg/dL (0.7-1.3) 5.7 mg/dL (0.7-1.3) Estimated GFR (Cockcroft-Gault) 13.7 10.7 BUN/Creatinine Ratio 10 (6-20) 9 (6-20) Glucose Level 84 mg/dL (70-99) 97 mg/dL (70-99) Calcium Level 6.1 mg/dL (8.5-10.1) 5.7 mg/dL (8.5-10.1) Magnesium Level 1.7 mg/dL (1.8-2.4) 1.4 mg/dL (1.8-2.4) Total Bilirubin 18.8 mg/dL (0.2-1.0) 19.2 mg/dL (0.2-1.0) Aspartate Amino Transf (AST/SGOT) 256 U/L (15-37) 223 U/L (15-37) Alanine Aminotransferase (ALT/SGPT) 39 U/L (16-63) 36 U/L (16-63) Alkaline Phosphatase 213 U/L (46-116) 140 U/L (46-116) Total Protein 5.0 g/dL (6.4-8.2) 4.3 g/dL (6.4-8.2) Albumin 1.4 g/dL (3.4-5.0) 1.9 g/dL (3.4-5.0) Albumin/Globulin Ratio 0.4 (1.0-1.7) 0.8 (1.0-1.7) Lactic Acid Level 5.9 mmol/L (0.4-2.0) Creatine Kinase 118 U/L (39-308) Urine Collection Type U cath Urine Color Green Urine Clarity Hazy Urine pH 6.0 Urine Specific [place] 1.025 Urine Protein >=300 mg/dL (NEG-TRACE) Urine Glucose (UA) Negative mg/dL (NEG) Urine Ketones (Stick) Negative mg/dL (NEG) Urine Blood Large (NEG) Urine Nitrite Negative (NEG) Urine Bilirubin Large (NEG) Urine Urobilinogen Dipstick 1.0 mg/dL (0.2 mg/dL) Urine Leukocyte Esterase Large (NEG) Urine RBC 1-2 /HPF (0-2) Urine WBC 1-4 /HPF (0-4) Urine Squamous Epithelial Cells Occ /LPF Urine Bacteria Many /HPF (0-FEW) Phosphorus Level 2.9 mg/dL (2.6-4.7) Laboratory Tests Test 02/04/17 10:00 02/04/17 13:15 02/05/17 05:20 Lactic Acid Level 5.9 mmol/L (0.4-2.0) Creatine Kinase 118 U/L (39-308) Urine Collection Type U cath Urine Color Green Urine Clarity Hazy Urine pH 6.0 Urine Specific [place] 1.025 Urine Protein >=300 mg/dL (NEG-TRACE) Urine Glucose (UA) Negative mg/dL (NEG) Urine Ketones (Stick) Negative mg/dL (NEG) Urine Blood Large (NEG) Urine Nitrite Negative (NEG) Urine Bilirubin Large (NEG) Urine Urobilinogen Dipstick 1.0 mg/dL (0.2 mg/dL) Urine Leukocyte Esterase Large (NEG) Urine RBC 1-2 /HPF (0-2) Urine WBC 1-4 /HPF (0-4) Urine Squamous Epithelial Cells Occ /LPF Urine Bacteria Many /HPF (0-FEW) White Blood Count 23.3 x10^3/uL (4.0-11.0) Red Blood Count 1.47 x10^6/uL (4.30-5.70) Hemoglobin 5.5 g/dL (13.0-17.5) Hematocrit 16.2 % (39.0-53.0) Mean Corpuscular Volume 111 fL (79-100) Mean Corpuscular Hemoglobin 37 pg (25-35) Mean Corpuscular Hemoglobin Concent 34 g/dL (31-37) Red Cell Distribution Width 19.7 % (11.5-14.5) Platelet Count 208 x10^3/uL (140-400) Neutrophils (%) (Auto) 82 % (31-73) Lymphocytes (%) (Auto) 9 % (24-48) Monocytes (%) (Auto) 9 % (0-9) Eosinophils (%) (Auto) 0 % (0-3) Basophils (%) (Auto) 0 % (0-3) Neutrophils # (Auto) 19.1 x10^3uL (1.8-7.7) Lymphocytes # (Auto) 2.0 x10^3/uL (1.0-4.8) Monocytes # (Auto) 2.1 x10^3/uL (0.0-1.1) Eosinophils # (Auto) 0.0 x10^3/uL (0.0-0.7) Basophils # (Auto) 0.1 x10^3/uL (0.0-0.2) Sodium Level 131 mmol/L (136-145) Potassium Level 3.5 mmol/L (3.5-5.1) Chloride Level 93 mmol/L (98-107) Carbon Dioxide Level 17 mmol/L (21-32) Anion Gap 21 (6-14) Blood Urea Nitrogen 53 mg/dL (8-26) Creatinine 5.7 mg/dL (0.7-1.3) Estimated GFR (Cockcroft-Gault) 10.7 BUN/Creatinine Ratio 9 (6-20) Glucose Level 97 mg/dL (70-99) Calcium Level 5.7 mg/dL (8.5-10.1) Phosphorus Level 2.9 mg/dL (2.6-4.7) Magnesium Level 1.4 mg/dL (1.8-2.4) Total Bilirubin 19.2 mg/dL (0.2-1.0) Aspartate Amino Transf (AST/SGOT) 223 U/L (15-37) Alanine Aminotransferase (ALT/SGPT) 36 U/L (16-63) Alkaline Phosphatase 140 U/L (46-116) Total Protein 4.3 g/dL (6.4-8.2) Albumin 1.9 g/dL (3.4-5.0) Albumin/Globulin Ratio 0.8 (1.0-1.7) Microbiology 02/03/17 Blood Culture - Preliminary, Resulted NO GROWTH AFTER 1 DAY Medications Current Medications Sodium Chloride 1,000 ml @ 1,000 mls/hr 1X ONCE IV Last administered on 02/03t 14:00; Start 02/03/17 at 14:00; Stop 02/03/17 at 14:59; Status DC Fentanyl Citrate (Fentanyl 2ml Vial) 50 mcg 1X ONCE IV Last administered on 14:37; Start 02/03/17 at 14:30; Stop 02/03/17 at 14:31; Status DC Fentanyl Citrate (Fentanyl 2ml Vial) 100 mcg STK-MED ONCE .ROUTE ; Start at 14:27; Stop 02/03/17 at 14:28; Status DC Sodium Chloride 500 ml @ 500 mls/hr 1X ONCE IV Last administered on 14:59; Start 02/03/17 at 15:00; Stop 02/03/17 at 15:59; Status DC Norepinephrine Bitartrate 250 ml @ 0 mls/hr 1X ONCE IV Last administered on 16:02; Start 02/03/17 at 15:45; Stop 02/03/17 at 15:46; Status DC Piperacillin Sod/ Tazobactam Sod 3.375 gm/Dextrose 50 ml @ 100 mls/hr 1X ONCE IV ; Start 02/03/17 at 15:45; Stop 02/03/17 at 15:45; Status DC Piperacillin Sod/ Tazobactam Sod (Zosyn) 3.375 gm 1X ONCE IVP Last administered on 02/03/17 15:53; Start 02/03/17 at 15:45; Stop 02/03/17 at 15 :46; Status DC Sodium Chloride 1,000 ml @ 1,000 mls/hr 1X ONCE IV Last administered on 02/03 17:15; Start 02/03/17 at 17:15; Stop 02/03/17 at 18:14; Status DC Piperacillin Sod/ Tazobactam Sod 2.25 gm/Dextrose 50 ml @ 100 mls/hr Q6HRS IV ; Start 02/04/17 at 00:00; Status UNV Metronidazole 100 ml @ 100 mls/hr Q12HR IV Last administered on 02/05/17 09: 08; Start 02/03/17 at 21:00 Magnesium Sulfate/ Dextrose 50 ml @ 25 mls/hr 1X ONCE IV Last administered on 02/03/17 22:06; Start 02/03/17 at 20:00; Stop 02/03/17 at 21:59; Status DC Morphine Sulfate 2 mg PRN Q4HRS PRN IV PAIN Last administered on 02/05/17 04: 00; Start 02/03/17 at 19:30 Multivitamins 10 ml/Thiamine HCl 100 mg/Folic Acid 1 mg/Sodium Chloride 1,011.2 ml @ 1,000.088 mls/hr 1X ONCE IV Last administered on 02/03/17 20:15; Start 02/03/17 at 20:00; Stop 02/03/17 at 21:00; Status DC Multivitamins 10 ml/Thiamine HCl 100 mg/Folic Acid 1 mg/Sodium Chloride 1,011.2 ml @ 100 mls/ hr DAILY IV Last administered on 02/05/17 09:10; Start at 09:00; Stop 02/08/17 at 19:07 Lorazepam (Ativan) 1 mg PRN Q1HR PRN IV For CIWA 8-14; Start 02/03/17 at 19:45 Info (Do NOT chart on this placeholder) 1 each 1X ONCE MC ; Start 02/03/17 at 19:45; Stop 02/03/17 at 19:46; Status UNV Pneumococcal Polyvalent Vaccine (Do NOT chart on this placeholder) 1 each 1X ONCE MC ; Start 02/03/17 at 19:45; Stop 02/03/17 at 19:46; Status UNV Piperacillin Sod/ Tazobactam Sod (Zosyn) 2.25 gm Q6HRS IVP Last administered on 02/04/17 11:56; Start 02/04/17 at 00:00; Stop 02/04/17 at 15:01; Status DC Lorazepam (Ativan) 2 mg PRN Q1HR PRN IV For CIWA 8-14 Last administered on 02:13; Start 02/03/17 at 19:45 Influenza Virus Vaccine Quadrival (Fluarix Quad [id number] Syringe) 0.5 ml ONCE ONCE VAX IM ; Start 02/03/17 at 21:00; Stop 02/03/17 at 21:01; Status DC Pneumococcal Polyvalent Vaccine (Pneumovax 23) 0.5 ml ONCE ONCE VAX IM ; Start 02/03/17 at 12:00; Stop 02/03/17 at 19:44; Status DC Sodium Chloride 1,000 ml @ 100 mls/hr Q10H IV Last administered on 02/04/17 23:37; Start 02/03/17 at 21:45 Sodium Chloride 500 ml @ 500 mls/hr 1X ONCE IV Last administered on 22:07; Start 02/03/17 at 22:30; Stop 02/03/17 at 23:29; Status DC Norepinephrine Bitartrate 250 ml @ 0 mls/hr CONT PRN IV SEE I/O RECORD Last administered on 02/05/17 09:09; Start 02/03/17 at 23:30 Sodium Chloride 500 ml @ 500 mls/hr 1X ONCE IV Last administered on 02:46; Start 02/04/17 at 03:00; Stop 02/04/17 at 03:59; Status DC Vasopressin 40 unit/Dextrose 102 ml @ 6 mls/hr CONT PRN IV SEE I/O RECORD Last administered on 02/05/17 04:28; Start 02/04/17 at 09:30 Albumin Human 100 ml @ 100 mls/hr TID IV Last administered on 02/05/17 09:08 ; Start 02/04/17 at 14:00; Stop 02/06/17 at 09:59 Magnesium Sulfate/ Dextrose 50 ml @ 25 mls/hr PRN DAILY PRN IV for Mag < 1.7 on am labs; Start 02/04/17 at 10:15 Sodium Bicarbonate 50 meq Q2HR IV Last administered on 02/04/17 11:55; Start 02/04/17 at 10:00; Stop 02/04/17 at 12:01; Status DC Lidocaine/Sodium Bicarbonate (Buffered Lidocaine 1%) 3 ml STK-MED ONCE IJ ; Start 02/04/17 at 11:18; Stop 02/04/17 at 11:19; Status DC Heparin Sodium (Porcine) (Heparin Sodium) 10,000 unit STK-MED ONCE .ROUTE ; Start 02/04/17 at 11:19; Stop 02/04/17 at 11:20; Status DC Sodium Chloride 500 ml @ 500 mls/hr PRN QID PRN IV UO< 30cc/hr over previous 6hrs Last administered on 02/04/17 23:33; Start 02/04/17 at 12:15 Lidocaine/Sodium Bicarbonate (Buffered Lidocaine 1%) 6 ml 1X ONCE IJ Last administered on 02/04/17 12:47; Start 02/04/17 at 12:30; Stop 02/04/17 at 12 :31; Status DC Heparin Sodium (Porcine) (Heparin Sodium) 2,500 unit 1X ONCE INT CAT Last administered on 02/04/17 12:47; Start 02/04/17 at 12:45; Stop 02/04/17 at 12 :46; Status DC Ziprasidone (Geodon Im) 10 mg PRN Q2HRS PRN IM ANXIETY / AGITATION Last administered on 02/04/17 14:15; Start 02/04/17 at 14:00 Lactobacillus Rhamnosus (Culturelle) 1 cap BID PO ; Start 02/04/17 at 21:00 Piperacillin Sod/ Tazobactam Sod (Zosyn) 2.25 gm Q8HRS IVP Last administered on 02/05/17 05:28; Start 02/04/17 at 22:00 Magnesium Sulfate/ Dextrose 50 ml @ 25 mls/hr 1X ONCE IV Last administered on 02/05/17 07:26; Start 02/05/17 at 07:00; Stop 02/05/17 at 08:59; Status DC Hydrocortisone Sodium Succinate (Solu-CORTEF) 100 mg Q8HRS IV Last administered on 02/05/17 09:08; Start 02/05/17 at 08:45 Active Scripts Active No Active Prescriptions or Reported Medications Vitals/I & O Vital Sign - Last 24 Hours 02/04/17 02/04/17 02/04/17 02/04/17 09:54 11:02 12:09 12:11 Pulse 97 95 100 Resp 20 26 26 B/P (MAP) 80/50 (60) 82/51 (61) 82/51 (61) Pulse Ox 95 94 95 O2 Delivery Room Air Room Air Room Air Room Air 02/04/17 02/04/17 02/04/17 02/04/17 13:06 14:00 15:04 15:36 Pulse 98 109 110 Resp 18 B/P (MAP) 84/60 (68) 83/45 (58) 72/53 (59) Pulse Ox 94 92 91 O2 Delivery Room Air Room Air Room Air Room Air 02/04/17 02/04/17 02/04/17 02/04/17 15:46 17:00 18:00 19:00 Pulse 100 96 96 97 Resp 19 B/P (MAP) 85/51 (62) 88/56 (67) 80/46 (57) 87/46 (60) Pulse Ox 95 94 92 93 O2 Delivery Room Air Room Air Room Air Room Air 02/04/17 02/04/17 02/04/17 02/04/17 20:00 20:00 21:00 22:00 Temp 97.5 97.5 Pulse 96 98 96 Resp 23 24 B/P (MAP) 85/53 (64) 87/56 (66) 91/62 (72) Pulse Ox 93 92 93 O2 Delivery Room Air Room Air Room Air Room Air 02/04/17 02/05/17 02/05/17 02/05/17 23:00 00:00 00:00 01:00 Temp 97.6 97.6 Pulse 93 94 93 Resp 19 19 19 B/P (MAP) 93/63 (73) 85/50 (62) 93/55 (68) Pulse Ox 93 92 94 O2 Delivery Room Air Room Air Room Air Nasal Cannula O2 Flow Rate 2.0 02/05/17 02/05/17 02/05/17 02/05/17 02:00 03:00 04:00 04:00 Pulse 103 92 Resp 30 B/P (MAP) 87/43 (58) 89/45 (60) Pulse Ox 92 92 91 O2 Delivery Nasal Cannula Nasal Cannula Nasal Cannula Nasal Cannula O2 Flow Rate 2.0 2.0 3.0 02/05/17 02/05/17 02/05/17 02/05/17 04:00 04:49 05:00 06:00 Temp 97.6 97.6 Pulse 92 92 92 Resp 20 22 19 20 B/P (MAP) 96/51 (66) 93/53 (66) 96/55 (69) Pulse Ox 93 93 92 92 O2 Delivery Nasal Cannula Nasal Cannula Nasal Cannula Nasal Cannula O2 Flow Rate 3.0 3.0 3.0 3.0 02/05/17 02/05/17 02/05/17 02/05/17 07:12 07:30 08:07 09:03 Temp 97.8 97.8 Pulse 95 98 96 Resp 30 B/P (MAP) 86/58 (67) 95/55 (68) 85/52 (63) Pulse Ox 92 91 92 O2 Delivery Nasal Cannula Nasal Cannula Nasal Cannula Venturi Mask O2 Flow Rate 3.0 5.0 5.0 15.0 Intake and Output 02/04/17 02/04/17 02/05/17 15:00 23:00 07:00 Intake Total 125 ml 3133 ml 2507 ml Output Total 3 ml 6 ml 3 ml Balance 122 ml 3127 ml 2504 ml LUZ VILLAR MD Feb 05, 2017 09:52
--- NOTE | 2017-02-05 11:42 | CONS ---
DATE OF CONSULTATION: 02/05/2017 ROOM: ICU 6. REQUESTING PHYSICIAN: Dr. Herr. REASON FOR CONSULTATION: Positive blood cultures. HISTORY OF PRESENT ILLNESS: Apparently, the patient is encephalopathic, unable to provide any past medical history, history of present illness or review of systems, these are obtained from the chart. The patient is a 47-year-old gentleman with a known history of alcohol abuse, who was actually seen in the Emergency Room on 01/18 secondary to dizziness and lightheadedness. He was admitted for short stay and subsequently was discharged. He then returned to the Emergency Room on the secondary to weakness. He developed nausea, right upper quadrant pain and discoloration of his skin. He had decreased his alcohol intake to half a pint a day, also decreased his tobacco intake to half a pack. He has a bilirubin of 20.7. Lactic acid was 7.2. His creatinine was 4.5, whereas on 01/18, it had been 0.7. His previous total bilirubin was 6 on 01/18. His lipase has been normal. He underwent an ultrasound on 02/03, it showed increased hepatic echogenicity compatible with steatosis. Gallbladder is filled with echogenic material, probable sludge. Diffuse gallbladder wall thickening was seen and small volume ascites. Chest x-ray showed no acute finding, although decreased inspiration. Subsequently, he underwent placement of a Trialysis catheter on 02/04, but has not yet had dialysis. Ultrasound of his kidneys showed no hydronephrosis, and a repeat chest x-ray showed some minimal bilateral atelectasis. Subsequently, he has been admitted to the Intensive Care Unit. He was placed on Zosyn on 02/04, metronidazole was started on the . This morning, blood culture turned positive for tiny gram-positive cocci, and I have been consulted. Currently, the patient is somewhat encephalopathic, barely arousable, unable to answer any questions. PAST MEDICAL HISTORY: According to chart, positive for severe alcohol abuse. PAST SURGICAL HISTORY: Positive for tonsillectomy. REVIEW OF SYSTEMS: Unobtainable. ALLERGIES: No known drug allergies. SOCIAL HISTORY: He is a air conditioning equipment mechanic. Has a girlfriend. Again has alcohol as well as tobacco intake. FAMILY HISTORY: Apparently is positive for alcohol abuse. CURRENT MEDICATIONS: Include metronidazole, Levophed, he is on 30 at this point. Ativan, morphine, Zosyn and a banana bag. PHYSICAL EXAMINATION: VITAL SIGNS: He has been afebrile since his arrival. Blood pressures has been as low as 70s/40s, current temperature 97.8 axillary, pulse 98, respirations 28. Now placed on a face mask from nasal cannula, which was previous 5 liters with 91% sat. Blood pressure 95/55, on Levophed as mentioned above. CONSTITUTIONAL: He is somewhat encephalopathic. HEENT: His pupils are equal and reactive. He has got icteric sclerae. Oral cavity and pharynx were dry. NECK: Supple, no JVD. LUNGS: Decreased in the bases. HEART: S1, S2. ABDOMEN: Protuberant. He has got massive hepatomegaly and splenomegaly. There is no gross fluid wave. Decreased bowel sounds, no guarding or rebound. King is in place. EXTREMITIES: No clubbing, cyanosis, with 1-2+ edema. SKIN: Jaundice. There was no gross rash. Right IJ lines are clean without signs of any complications. NEUROLOGIC: He is encephalopathic. LABORATORY DATA: Sodium today 131, it was as low as 119 previously. Creatinine of 5.7. Lactic acid most recently 5.9, down from 7.2. Calcium is 5.7, AST 223, ALT 36, alkaline phosphatase 140. Lipase was normal. Albumin of Urinalysis, large leukocyte esterase, wbc's 1-4, occasional squamous, many bacteria. MRSA screen was negative. Radiology reviewed in the history of present illness. IMPRESSION: 1. Sepsis, present on admission with tiny gram-positive cocci seen in his blood cultures from the , also has lactic acidosis and hypotension, currently on 30 of Levophed. 2. Leukocytosis. 3. Questionable urinary tract infection present on admission. 4. Questionable hepatorenal syndrome. 5. Acute kidney injury. 6. Anemia, questionable gastrointestinal bleed. 7. Gallbladder sludge. RECOMMENDATIONS: For now, agree with Adonis and yl. We will stress dose steroids. Follow up on labs and cultures, await hemodialysis. Await chest x-ray. He has a poor prognosis. This was discussed with Dr. Herr. Thank you for allowing me to participate in the patient's care. If you have any questions, please do not hesitate to contact me. NAOMIE HUTSON MD DR: Contreras JOB#: [id number] / [id number]
--- NOTE | 2017-02-06 18:48 | DS ---
DATE OF DISCHARGE: 02/05/2017 CHIEF COMPLAINT: Jaundice. HOSPITAL COURSE: The patient is a 47-year-old alcoholic, who presented with jaundice of several days. In the Emergency Room, he was found with hypotensive shock, hypoxia, severe jaundice with a bilirubin of 20 as well as acute renal failure with a creatinine of 4.5. He was therefore admitted to the ICU for further management. Because of severe hypertension, lactic acidosis and elevated WBC, he was thought to have sepsis septic shock. This was treated with massive doses of IV fluids as well as pressors. On the third day of his hospitalization, blood cultures grew tiny gram-positive cocci. Infectious Disease was following along and expanded broad spectrum empiric antibiotics. His kidney function did not improve over the hospitalization; however, dialysis was relatively contraindicated due to his severe hypotension. CVVT was considered, but ultimately not started given his poor overall prognosis. His hepatic failure was severe and transaminases did not improve during his hospitalization. He had diarrhea as well, which appeared to be melanotic. With a drop in hemoglobin on the , he received transfusion x 2 PRBC. He did become hypoxic towards the end. Chest x-rays were obtained showing pulmonary edema and possible consolidation. With the situation becoming worse daily, discussions were held with significant other as well as siblings and the patient was made DNR. He suddenly deteriorated rapidly on the and with family at bedside. For further details on physical exam, please refer to note from same day. DISCHARGE DIAGNOSES: due to septic shock and hepatorenal failure. RENE MARQUEZ MD DR: MARSHA/alejandro JOB#: [id number] / [id number] CHRISTINE
== END 2017-02-05 10:27 | disposition expired | DRG 871 ==
LOC: ER 13:24 → 1 WEST ICU 14:37
PROVIDERS: ADMIT Internal Medicine Hematology & Oncology; ATTEND Internal Medicine Hematology & Oncology
PROC: 02H633Z Insertion of Infusion Device into Right Atrium, Percutaneous Approach (ICD-10-PCS; principal; 2017-02-04)
PROC: B244ZZZ Ultrasonography of Right Heart (ICD-10-PCS; 2017-02-04)
DX: A41.9 Sepsis, unspecified organism (principal); K76.7 Hepatorenal syndrome; R65.21 Severe sepsis with septic shock; J81.1 Chronic pulmonary edema; N17.9 Acute kidney failure, unspecified; E46 Unspecified protein-calorie malnutrition; R18.8 Other ascites; K72.90 Hepatic failure, unspecified without coma; E87.1 Hypo-osmolality and hyponatremia; N39.0 Urinary tract infection, site not specified; K76.0 Fatty (change of) liver, not elsewhere classified; E77.8 Other disorders of glycoprotein metabolism; E83.51 Hypocalcemia; D53.9 Nutritional anemia, unspecified; E86.0 Dehydration; F10.20 Alcohol dependence, uncomplicated; F17.210 Nicotine dependence, cigarettes, uncomplicated; I10 Essential (primary) hypertension; R09.02 Hypoxemia; Z66 Do not resuscitate; Z68.26 Body mass index [BMI] 26.0-26.9, adult
CPT/HCPCS: 36415; 36556; 71010; 76705; 76770; 76937; 80053; 81001; 82140; 82550; 83605; 83690; 83735; 84100; 85007; 85025; 85610; 87040; 87086; 87205; 87641; 93005; 96374; 99406; A4215; C1892; J1720; J2060; J2270; J2543; J3010; J3486; J3490; J7030; J7040; J7060; P9046; 99291-25